=== PATIENT | female | born 1965 | race African-American/Black ===

== ENCOUNTER 2018-10-26 09:37 | Inpatient (IN) | payer MEDICAID ==
[~2018-10-26] VITALS: Ht 165.1 cm; Wt 72.6 kg
[~2018-10-26 09:37] MED LIST: ALBUTEROL SULF8.5 GM INH; AZITHROMYCIN250 MG ORAL; KEPPRA500 M4 ORAL; NORCO 5-325 TA1 EACH ORAL
--- NOTE | 2018-10-26 09:45 | NUR ---
ED Nurse Note: called raidiology for CT of the head for possible stroke
--- NOTE | 2018-10-26 09:49 | NUR ---
ED Nurse Note: followed up CT for code stroke
[2018-10-26 09:50] VITALS: BP 139/93
--- NOTE | 2018-10-26 09:50 | NUR ---
ED Nurse Note: Pt taken to CT via kaya.
--- NOTE | 2018-10-26 09:50 | NUR ---
ED Nurse Note: Pt from home came in due to weakness x 4 days. Pt states that she is "feeling funny". Pt is AAO x4, ambulates with assist with non labored breathing. Speech is garbled but not slurring. VSS.
--- NOTE | 2018-10-26 09:52 | NUR ---
ED Nurse Note: PT. TAKEN DOWN TO CT
--- NOTE | 2018-10-26 10:10 | Diagnostic Imaging Report ---
Indication: Seizure Technique: Contiguous 5 mm thick transaxial imaging of the head obtained in a Siemens Sensation [address] scanner. Soft tissue and bone windows generated. Automatic Exposure Control was utilized. Total Dose length Product (DLP): 1245.[address] Dose Index Volume (CTDIvol): 70.38 mGy Comparison: none Findings: Scattered areas of encephalomalacia are demonstrated within portions of the frontal lobes bilaterally worse on the right, posterior parietal lobes bilaterally. There is no mass effect or edema identified. The basal cisterns appear normal. Ventricles appear normal. There is low attenuation of the periventricular and deep white matter consistent with chronic small vessel disease. Osseous structures are unremarkable. Paranasal sinuses appear clear as visualized. IMPRESSION: No evidence of acute intracranial hemorrhage mass effect or edema Small areas of cortical encephalomalacia noted bilaterally presumably infarcts. Please correlate clinically. Nonspecific white matter low attenuation, which may be due to chronic small vessel disease. The CT scanner at [facility] is accredited by the [employer] and the scans are performed using dose optimization techniques as appropriate to a performed exam including Automatic Exposure control.
--- NOTE | 2018-10-26 10:10 | Diagnostic Imaging Report ---
Indication: Chest pain Comparison: None A single view chest radiograph was obtained. Findings: Cardiac silhouette is prominent. The lungs are clear. Pulmonary vascularity is appropriate. The diaphragmatic contour is smooth and costophrenic angles are sharp. No pleural effusions are identified. The bones are unremarkable. Impression: No acute findings
--- NOTE | 2018-10-26 10:15 | NUR ---
ED Nurse Note: Pt came back from CT. VSS.
[2018-10-26 10:35] LABS: HEMATOCRIT 37.8 % (37.0-47.0); HEMOGLOBIN 12.6 G/DL (12.0-16.0); MEAN CORPUSCULAR VOLUME 94 FL (80-99); RED BLOOD COUNT 4.01 M/UL (4.20-5.40); RED CELL DISTRIBUTION WIDTH 12.1 % (11.6-14.8); WHITE BLOOD COUNT 6.4 K/UL (4.8-10.8)
--- NOTE | 2018-10-26 10:42 | NUR ---
ED Nurse Note: LAB CALLED FOR BLOOD REDRAW.
[2018-10-26 10:48] LABS: INR 0.9 (0.9-1.1)
--- NOTE | 2018-10-26 11:20 | NUR ---
ED Nurse Note: Joleen from lab at the bed side for blood draw.
[2018-10-26 11:39] LABS: PLATELET COUNT 239 K/UL (150-450)
[2018-10-26 11:42] LABS: ANION GAP 9 mmol/L (5-15); BLOOD UREA NITROGEN 14 mg/dL (7-18); CALCIUM 8.6 MG/DL (8.5-10.1); CARBON DIOXIDE 27 MMOL/L (21-32); CHLORIDE 104 MMOL/L (98-107); CREATININE 0.7 MG/DL (0.55-1.30); POTASSIUM 3.9 MMOL/L (3.5-5.1); SODIUM 140 MMOL/L (136-145)
[2018-10-26 11:47] VITALS: BP 123/80
--- NOTE | 2018-10-26 12:00 | NUR ---
ED Nurse Note: Dr Yumiko flores to transfer to pt to telemetry unit without all the results of blood works.
--- NOTE | 2018-10-26 12:03 | NUR ---
ED Nurse Note: Report given to Coy GUNDERSON of telemetry unit.
[2018-10-26 12:08] LABS: ALANINE AMINOTRANSFERASE 15 U/L (12-78); ALBUMIN 3.1 G/DL (3.4-5.0); ALBUMIN/GLOBULIN RATIO 0.8 (1.0-2.7); ALKALINE PHOSPHATASE 129 U/L (46-116); ASPARTATE AMINO TRANSFERASE 10 U/L (15-37); BILIRUBIN,TOTAL 0.3 MG/DL (0.2-1.0); CREATINE KINASE 59 U/L (26-308)
[2018-10-26 12:51] VITALS: BP 140/80
--- NOTE | 2018-10-26 13:01 | NUR ---
NURSE NOTES: Pt awake alert,verbal, oriented x2-3. no distress. no c/o pain. sacral area intact. call light within reach. will monitor.
--- NOTE | 2018-10-26 13:01 | NUR ---
NURSE NOTES: PAGED DR NEWELL RE ADMISSION ORDERS VIA MD OFFICE.
--- NOTE | 2018-10-26 13:28 | Emergency Room Report ---
History of Present Illness General Chief Complaint: Stroke Symptoms Source: Patient Present Illness HPI Patient presents with complaints of'not feeling right' Patient was brought in by family However reports that she was dropped off and there was no other family that presented Patient has history of CVA and seizure disorder is on Keppra Reports that 4 days ago symptoms started including stuttering of her speech Denies any chest pain or shortness of breath denies any obvious focal weakness Denies any recent travel Denies any visual changes, Allergies: Coded Allergies: GUAIFENESIN (Verified Allergy, Unknown, 08/31/15) IBUPROFEN (Verified Allergy, Unknown, 08/31/15) PENICILLINS (Verified Allergy, Unknown, 08/31/15) PHENYTOIN (Verified Allergy, Unknown, 08/31/15) Patient History Past Medical History: see triage record Pertinent Family History: none Now: No Reviewed Nursing Documentation: PMH: Agreed; PSxH: Agreed Nursing Documentation-PMH Past Medical History: No History, Except For Hx Cardiac Problems: Yes Hx Hypertension: Yes Hx Diabetes: Yes Hx Cancer: No Hx Gastrointestinal Problems: No Hx Cerebrovascular Accident: Yes Hx Seizures: Yes Review of Systems All Other Systems: negative except mentioned in HPI Physical Exam Vital Signs Date Time Temp Pulse Resp B/P (MAP) Pulse Ox O2 Delivery O2 Flow Rate FiO2 10/26/18 09:45 97.9 113 20 99 Room Air 10/26/18 09:50 139/93 Sp02 EP Interpretation: reviewed, normal General Appearance: no apparent distress Head: normocephalic, atraumatic Eyes: bilateral eye PERRL, bilateral eye EOMI ENT: normal pharynx, no angioedema Neck: supple Respiratory: lungs clear, no retraction, no accessory muscle use Cardiovascular #1: regular rate, rhythm Gastrointestinal: non tender, soft Musculoskeletal: other - Equal visual supervisor in both upper extremities, moves lower extremities equally sensory intact Neurologic: alert, oriented x3, responsive, other - Speech shows some evidence of word searching and, stuttering affect Skin: normal color, no rash Lymphatic: no adenopathy Medical Decision Making Diagnostic Impression: Primary Impression: Stroke-like episode Additional Impression: CVA (cerebral vascular accident) ER Course Patient has a complex presentation with multiple differentials and consideration Including but not limited to stroke, mass, cardiac, cardiopulmonary pathology Patient's symptoms onset 4 days ago No obvious weakness is seen Patient does not meet criteria for thrombolytic therapy At this time has remained seizure-free however given the unusual presentation Will require further inpatient care and possible MRI as needed Labs Test 10/26/18 10:25 10/26/18 11:23 White Blood Count 6.4 K/UL (4.8-10.8) Red Blood Count 4.01 M/UL (4.20-5.40) Hemoglobin 12.6 G/DL (12.0-16.0) Hematocrit 37.8 % (37.0-47.0) Mean Corpuscular Volume 94 FL (80-99) Mean Corpuscular Hemoglobin 31.5 PG (27.0-31.0) Mean Corpuscular Hemoglobin Concent 33.5 G/DL (32.0-36.0) Red Cell Distribution Width 12.1 % (11.6-14.8) Platelet Count 239 K/UL (150-450) Mean Platelet Volume 7.8 FL (6.5-10.1) Neutrophils (%) (Auto) % (45.0-75.0) Lymphocytes (%) (Auto) % (20.0-45.0) Monocytes (%) (Auto) % (1.0-10.0) Eosinophils (%) (Auto) % (0.0-3.0) Basophils (%) (Auto) % (0.0-2.0) Differential Total Cells Counted 100 Neutrophils % (Manual) 39 % (45-75) Lymphocytes % (Manual) 51 % (20-45) Monocytes % (Manual) 3 % (1-10) Eosinophils % (Manual) 6 % (0-3) Basophils % (Manual) 1 % (0-2) Band Neutrophils 0 % (0-8) Platelet Estimate Adequate Platelet Morphology Normal Red Blood Cell Morphology Normal Prothrombin Time 9.8 SEC (9.30-11.50) Prothromb Time International Ratio 0.9 (0.9-1.1) Activated Partial Thromboplast Time 20 SEC (23-33) Sodium Level 140 MMOL/L (136-145) Potassium Level 3.9 MMOL/L (3.5-5.1) Chloride Level 104 MMOL/L (98-107) Carbon Dioxide Level 27 MMOL/L (21-32) Anion Gap 9 mmol/L (5-15) Blood Urea Nitrogen 14 mg/dL (7-18) Creatinine 0.7 MG/DL (0.55-1.30) Estimat Glomerular Filtration Rate > 60 mL/min (>60) Glucose Level 359 MG/DL (74-106) Calcium Level 8.6 MG/DL (8.5-10.1) Total Bilirubin 0.3 MG/DL (0.2-1.0) Aspartate Amino Transf (AST/SGOT) 10 U/L (15-37) Alanine Aminotransferase (ALT/SGPT) 15 U/L (12-78) Alkaline Phosphatase 129 U/L (46-116) Total Creatine Kinase 59 U/L (26-308) Creatine Kinase MB 1.0 NG/ML (0.0-3.6) Creatine Kinase MB Relative Index 1.6 Troponin I 0.012 ng/mL (0.000-0.056) Total Protein 6.9 G/DL (6.4-8.2) Albumin 3.1 G/DL (3.4-5.0) Globulin 3.8 g/dL Albumin/Globulin Ratio 0.8 (1.0-2.7) Urine Opiates Screen Negative (NEGATIVE) Urine Barbiturates Screen Negative (NEGATIVE) Phencyclidine (PCP) Screen Negative (NEGATIVE) Urine Amphetamines Screen Negative (NEGATIVE) Urine Benzodiazepines Screen Negative (NEGATIVE) Urine Cocaine Screen Negative (NEGATIVE) Urine Marijuana (THC) Screen Positive (NEGATIVE) EKG Diagnostic Results Rate: normal Rhythm: NSR ST Segments: no acute changes Rhythm Strip Diag. Results EP Interpretation: yes Rate: 70 Rhythm: NSR, no PVC's, no ectopy Chest X-Ray Diagnostic Results Chest X-Ray Diagnostic Results : Chest X-Ray Ordered: Yes # of Views/Limited/Complete: 1 View Indication: Chest Pain EP Interpretation: Yes Interpretation: no consolidation, no effusion, no pneumothorax Impression: No acute disease Electronically Signed by: Josefa Calderon DO CT/MRI/US Diagnostic Results CT/MRI/US Diagnostic Results : Impression CT head no acute disease Last Vital Signs Date Time Temp Pulse Resp B/P (MAP) Pulse Ox O2 Delivery O2 Flow Rate FiO2 10/26/18 12:57 Room Air 10/26/18 12:51 98.5 80 18 140/80 (100) 98 Status: improved Disposition: ADMITTED INPATIENT Condition: Serious Referrals: NOT CHOSEN IPA/,REFERRING (PCP) Josefa Calderon DO October 26, 2018 13:27
--- NOTE | 2018-10-26 14:06 | NUR ---
NURSE NOTES: JUST RECEIVED ORDERS NOW, ENTERED AND CARRIED OUT. CALLED KITCHEN FOR TRAY
[2018-10-26] MEDS: HYDROcodone/Acetamin 5/325 tab ORAL PRN ×2 (14:18→21:01)
--- NOTE | 2018-10-26 14:22 | NUR ---
NURSE NOTES: received second call from dr Lino to notify rn that 'the reason i didnt call back right away is because this pt was not endorsed to me so i had to wait for er md to endorse to me"
--- NOTE | 2018-10-26 14:26 | Consultation ---
History of Present Illness General Date patient seen: October 26, 2018 Chief Complaint: Stroke Symptoms Present Illness HPI Kylee Hooks is a 53 year old woman with a history of CVA and seizure disorder controlled on Keppra. She was brought in by her family after she experienced worsening stuttering speech for the previous four days. She also remarks that she is experiencing head pressure/ pain and "doesn' t feel right". Upon exam, she is alert and oriented, sitting at the side of the bed. Allergies: Coded Allergies: GUAIFENESIN (Verified Allergy, Unknown, 08/31/15) IBUPROFEN (Verified Allergy, Unknown, Hives, 10/26/18) TOLERATED ASPIRIN PENICILLINS (Verified Allergy, Unknown, 08/31/15) PHENYTOIN (Verified Allergy, Unknown, 08/31/15) Medication History Scheduled Albuterol Sulfate* (Albuterol Sulfate Mdi*), 2 PUFF INH Q4H Azithromycin* (Zithromax*), 250 MG ORAL DAILY Levetiracetam (Keppra), 500 MG ORAL THREE TIMES A DAY Scheduled PRN Hydrocodone Bit/Acetaminophen 5-325* (Corona 5-325*), 1 TAB ORAL Q6H PRN for For Pain Patient History Limited by: medical condition History Provided By: Patient, Medical Record Healthcare decision maker Resuscitation status Advanced Directive on File Past Medical/Surgical History Past Medical/Surgical History: (1) CVA (cerebral vascular accident) (2) HTN (hypertension) (3) Seizure (4) Hyperglycemia Review of Systems Constitutional: Reports: weakness, other Eye: Reports: blurred vision; Denies: no symptoms, see HPI, eye pain, tearing, double vision, nose pain, nose congestion, acuity changes, discharge, other ENT: Denies: no symptoms, see HPI, ear pain, ear discharge, nose pain, nose congestion, throat pain, throat swelling, mouth pain, hearing loss, nasal discharge, other Respiratory: Denies: no symptoms, see HPI, cough, orthopnea, shortness of breath, stridor, wheezing, GILLIAM, sputum, other Cardiovascular: Denies: no symptoms, see HPI, chest pain, edema, palpitations, syncope, PND, other Gastrointestinal: Denies: no symptoms, see HPI, abdominal pain, constipation, diarrhea, nausea, vomiting, melena, hematemesis, other Genitourinary: Denies: no symptoms, see HPI, discharge, dysuria, frequency, hematuria, pain, retention, incontinence, urgency, vag bleed/dc, other Musculoskeletal: Reports: other; Denies: no symptoms, see HPI, back pain, gout , joint pain, joint swelling, muscle pain, muscle stiffness Skin: Denies: no symptoms, see HPI, rash, change in color, change in hair/nails , dryness, lesions, other Physical Exam Last 24 Hour Vital Signs Date Time Temp Pulse Resp B/P (MAP) Pulse Ox O2 Delivery O2 Flow Rate FiO2 10/26/18 12:57 Room Air 10/26/18 12:51 98.5 80 18 140/80 (100) 98 10/26/18 12:22 78 10/26/18 12:05 98.2 75 18 123/80 97 Room Air 10/26/18 11:47 98.2 75 18 123/80 97 Room Air 10/26/18 09:50 97.9 85 18 139/93 99 Room Air 10/26/18 09:45 97.9 113 20 99 Room Air Laboratory Tests Test 10/26/18 10:25 10/26/18 11:23 White Blood Count 6.4 K/UL (4.8-10.8) Red Blood Count 4.01 M/UL (4.20-5.40) L Hemoglobin 12.6 G/DL (12.0-16.0) Hematocrit 37.8 % (37.0-47.0) Mean Corpuscular Volume 94 FL (80-99) Mean Corpuscular Hemoglobin 31.5 PG (27.0-31.0) H Mean Corpuscular Hemoglobin Concent 33.5 G/DL (32.0-36.0) Red Cell Distribution Width 12.1 % (11.6-14.8) Platelet Count 239 K/UL (150-450) Mean Platelet Volume 7.8 FL (6.5-10.1) Neutrophils (%) (Auto) % (45.0-75.0) Lymphocytes (%) (Auto) % (20.0-45.0) Monocytes (%) (Auto) % (1.0-10.0) Eosinophils (%) (Auto) % (0.0-3.0) Basophils (%) (Auto) % (0.0-2.0) Differential Total Cells Counted 100 Neutrophils % (Manual) 39 % (45-75) L Lymphocytes % (Manual) 51 % (20-45) H Monocytes % (Manual) 3 % (1-10) Eosinophils % (Manual) 6 % (0-3) H Basophils % (Manual) 1 % (0-2) Band Neutrophils 0 % (0-8) Platelet Estimate Adequate Platelet Morphology Normal Red Blood Cell Morphology Normal Prothrombin Time 9.8 SEC (9.30-11.50) Prothromb Time International Ratio 0.9 (0.9-1.1) Activated Partial Thromboplast Time 20 SEC (23-33) L Sodium Level 140 MMOL/L (136-145) Potassium Level 3.9 MMOL/L (3.5-5.1) Chloride Level 104 MMOL/L (98-107) Carbon Dioxide Level 27 MMOL/L (21-32) Anion Gap 9 mmol/L (5-15) Blood Urea Nitrogen 14 mg/dL (7-18) Creatinine 0.7 MG/DL (0.55-1.30) Estimat Glomerular Filtration Rate > 60 mL/min (>60) Glucose Level 359 MG/DL (74-106) H Calcium Level 8.6 MG/DL (8.5-10.1) Total Bilirubin 0.3 MG/DL (0.2-1.0) Aspartate Amino Transf (AST/SGOT) 10 U/L (15-37) L Alanine Aminotransferase (ALT/SGPT) 15 U/L (12-78) Alkaline Phosphatase 129 U/L (46-116) H Total Creatine Kinase 59 U/L (26-308) Creatine Kinase MB 1.0 NG/ML (0.0-3.6) Creatine Kinase MB Relative Index 1.6 Troponin I 0.012 ng/mL (0.000-0.056) Total Protein 6.9 G/DL (6.4-8.2) Albumin 3.1 G/DL (3.4-5.0) L Globulin 3.8 g/dL Albumin/Globulin Ratio 0.8 (1.0-2.7) L Urine Opiates Screen Negative (NEGATIVE) Urine Barbiturates Screen Negative (NEGATIVE) Phencyclidine (PCP) Screen Negative (NEGATIVE) Urine Amphetamines Screen Negative (NEGATIVE) Urine Benzodiazepines Screen Negative (NEGATIVE) Urine Cocaine Screen Negative (NEGATIVE) Urine Marijuana (THC) Screen Positive (NEGATIVE) H Height (Feet): 5 Height (Inches): 5.00 Weight (Pounds): 160 Medications Current Medications Medications (Trade) Dose Ordered Sig/Cecil Route PRN Reason Start Time Stop Time Status Last Admin Dose Admin Acetaminophen (Tylenol) 650 mg Q4H PRN ORAL Mild Pain/Temp > 100.5 10/26/18 14:15 11/25/18 14:14 Acetaminophen/ Hydrocodone Bitart (Corona 5/325) 1 tab Q6H PRN ORAL Moderate Pain (Pain Scale 4-6) 10/26/18 14:15 11/02/18 14:14 10/26/18 14:18 Levetiracetam (Keppra) 500 mg Q8HR ORAL 10/26/18 14:08 11/25/18 14:07 10/26/18 14:18 Assessment/Plan Assessment/Plan: CT Head showed possible chronic bilateral infarcts and encephalomalacia that is likely attributable to history of seizure disorder . MRI w/o contrast ordered to rule out Acute Stroke EEG ordered to establish whether or not any epileptiform activity is seen to explain this episode. Hyperglycemia however appears to be a consideration in patient's current clinical status. A likely possibility is Acute Encephalopathy secondary to this metabolic cause. Continue ASA Check Lipids and start a statin 40mg Atorvastatin at this time HgBA1c pending - maintain normoglycemia with ISS at this time . Maintain SBP< 140 Berta Duran N.P. October 26, 2018 14:26
[2018-10-26 15:37] VITALS: BP 130/80
--- NOTE | 2018-10-26 16:52 | Consultation ---
Consult Note Consult Note asked to eval at the request of Dr Marc HPI Patient presents with complaints of'not feeling right' Patient was brought in by family However reports that she was dropped off and there was no other family that presented Patient has history of CVA and seizure disorder is on Keppra Reports that 4 days ago symptoms started including stuttering of her speech Denies any chest pain or shortness of breath denies any obvious focal weakness Denies any recent travel Denies any visual changes, Allergies: GUAIFENESIN (Verified Allergy, Unknown, 08/31/15) IBUPROFEN (Verified Allergy, Unknown, 08/31/15) PENICILLINS (Verified Allergy, Unknown, 08/31/15) PHENYTOIN (Verified Allergy, Unknown, 08/31/15) Past Medical History: No History, Except For Hx Cardiac Problems: Yes Hx Hypertension: Yes Hx Diabetes: Yes Hx Cerebrovascular Accident: Yes Hx Seizures: Yes interviewed examined data reviewed Assessment/Plan HTN DM OOC h/o Psych Urine + for MJ medium cho- easy chew- adentulous lopressor, ASA , continue Keppra per orders Adam Zepeda MD October 26, 2018 16:52
[2018-10-26] MEDS ORDERED: HydrALAZINE 25mg tab ORAL PRN (17:00)
[2018-10-26] MEDS: Docusate 100mg cap ORAL SCH (17:19)
--- NOTE | 2018-10-26 19:09 | NUR ---
NURSE NOTES: Received report from Otilia Gtz RN. Patient is asleep in bed, arousable to name, A/O x4. Sinus rhythm on atomic welder. No s/s of acute distress noted at this time. Saturating well on room air. Left forearm 20g IV saline lock, intact and patent. Bed locked in lowest position with padded side rails up x3. Call light left within reach. Will continue to monitor.
--- NOTE | 2018-10-26 19:09 | NUR ---
HAND-OFF: Report given to MAICOL GUNDERSON. PAGED DR MAYORGA FOR NEURO CONSULT
[2018-10-26 20:00] VITALS: BP 152/79
[2018-10-26] MEDS: Metoprolol Tartrate 12.5mg TAB ORAL SCH (21:00)
--- NOTE | 2018-10-26 22:30 | NUR ---
NURSE NOTES: EEG completed at bedside. EEG is normal. Attempted to call MRI for Brain MRI, although routine not stat. No answer. Will try again later.
--- NOTE | 2018-10-26 23:11 | NUR ---
NURSE NOTES: Received new orders from Dr. Zoie MD regarding blood glucose and Novolog sliding scale. Noted and carried out.
[2018-10-27] VITALS: BP 139/92
--- NOTE | 2018-10-27 01:00 | NUR ---
NURSE NOTES: Tried to call for MRI, but no answer once again.
--- NOTE | 2018-10-27 01:45 | NUR ---
NURSE NOTES: Received new order from Sergei Duran neuro BUS GIRL. Patient is to remain NPO until ST bedside swallow eval. Noted and carried out.
[2018-10-27] MEDS: HYDROcodone/Acetamin 5/325 tab ORAL PRN ×3 (03:07→20:40)
[2018-10-27 04:00] VITALS: BP 133/69
[2018-10-27] MEDS: NovoLOG Insulin Flexpen SUBQ SCH ×4 (06:12→21:08)
--- NOTE | 2018-10-27 06:29 | NUR ---
Unable to obtain weekly weight d/t patient's unsteady gait and patient stating "I don't feel comfortable standing long." Addendum: 10/27/18 at 0630 by JUAN FLORES RN Amended: Links added.
[2018-10-27] MEDS ORDERED: Nateglinide 60mg tab ORAL SCH (06:30)
--- NOTE | 2018-10-27 07:10 | NUR ---
HAND-OFF: Report given to Lupe Martínez RN.
--- NOTE | 2018-10-27 07:15 | NUR ---
NURSE NOTES: I received the patient awake and resting in bed. Patient did not display any signs of distress or SOB. Bed in the lowest position and call light within reach. I will continue to monitor the patient and implement care.
[2018-10-27 07:33] LABS: BASOPHILS % (AUTO) 0.9 % (0.0-2.0); EOSINOPHILS % (AUTO) 4.3 % (0.0-3.0); HEMATOCRIT 38.2 % (37.0-47.0); HEMOGLOBIN 12.7 G/DL (12.0-16.0); LYMPHOCYTES % (AUTO) 53.5 % (20.0-45.0); MEAN CORPUSCULAR VOLUME 94 FL (80-99); MONOCYTES % (AUTO) 5.8 % (1.0-10.0); NEUTROPHILS % (AUTO) 35.5 % (45.0-75.0); PLATELET COUNT 283 K/UL (150-450); RED BLOOD COUNT 4.06 M/UL (4.20-5.40); RED CELL DISTRIBUTION WIDTH 12.3 % (11.6-14.8); WHITE BLOOD COUNT 7.1 K/UL (4.8-10.8)
[2018-10-27 08:00] VITALS: BP 138/79
[2018-10-27 08:09] LABS: ALANINE AMINOTRANSFERASE 17 U/L (12-78); ALBUMIN 3.3 G/DL (3.4-5.0); ALBUMIN/GLOBULIN RATIO 0.9 (1.0-2.7); ALKALINE PHOSPHATASE 127 U/L (46-116); ANION GAP 6 mmol/L (5-15); ASPARTATE AMINO TRANSFERASE < 5 U/L (15-37); BILIRUBIN,TOTAL 0.4 MG/DL (0.2-1.0); BLOOD UREA NITROGEN 14 mg/dL (7-18); CALCIUM 9.2 MG/DL (8.5-10.1); CARBON DIOXIDE 32 MMOL/L (21-32); CHLORIDE 103 MMOL/L (98-107); CHOLESTEROL 171 MG/DL (< 200); CREATININE 0.6 MG/DL (0.55-1.30); HDL CHOLESTEROL 54 MG/DL (40-60); POTASSIUM 4.1 MMOL/L (3.5-5.1); SODIUM 141 MMOL/L (136-145); TRIGLYCERIDES 82 MG/DL (30-150)
[2018-10-27 08:12] LABS: GAMMA GLUTAMYL TRANSPEPTIDASE 35 U/L (5-85); PHOSPHORUS 3.9 MG/DL (2.5-4.9)
[2018-10-27] MEDS ORDERED: Levemir Flexpen SUBQ SCH (09:00)
[2018-10-27] MEDS: Aspirin Baby 81mg ORAL SCH (09:04)
[2018-10-27] MEDS: Metoprolol Tartrate 12.5mg TAB ORAL SCH ×2 (09:04→20:39)
[2018-10-27] MEDS: Docusate 100mg cap ORAL SCH ×3 (09:04→17:38)
--- NOTE | 2018-10-27 10:14 | NUR ---
CASE MANAGEMENT:REVIEW 53 YR OLD FEMALE PRESENTED TO ER CC: FEELING FUNNY. SLURRED SPEECH SI: ACUTE CVA 97.9 113 20 144/94 99% ON RA GLUCOSE+359 URINE(+) THC IS: 500CC NS BOLUS CT HEAD CHEST XRAY NPO : TO TELEMETRY UNIT IS: MRI BRAIN EEG SWALLOW EVAL INTERQUAL CRITERIA MET
--- NOTE | 2018-10-27 10:14 | Nephrology Progress Note ---
Assessment/Plan Problem List: (1) HTN (hypertension) (2) Hyperglycemia Assessment: DMII (3) Seizure Assessment HTN DM OOC h/o Psych Urine + for MJ Plan medium cho- easy chew- adentulous lopressor, ASA , continue Keppra starlix for BS per orders mag IV ? med- surg Subjective ROS Limited/Unobtainable: No Constitutional: Reports: other - anxious to go home Objective Objective Last 24 Hour Vital Signs Date Time Temp Pulse Resp B/P (MAP) Pulse Ox O2 Delivery O2 Flow Rate FiO2 10/27/18 09:04 69 138/79 10/27/18 09:00 Room Air 10/27/18 08:00 97.7 69 20 138/79 (98) 93 10/27/18 07:22 64 10/27/18 04:00 98.3 66 20 133/69 (90) 94 10/27/18 03:04 97 10/27/18 00:48 71 10/27/18 00:00 97.0 77 18 139/92 (108) 95 10/26/18 21:31 97.9 10/26/18 21:00 Room Air 10/26/18 21:00 81 152/79 10/26/18 20:00 97.9 81 20 152/79 (103) 97 10/26/18 19:04 88 10/26/18 15:37 98.5 70 18 130/80 (97) 98 10/26/18 12:57 Room Air 10/26/18 12:51 98.5 80 18 140/80 (100) 98 10/26/18 12:22 78 10/26/18 12:05 98.2 75 18 123/80 97 Room Air 10/26/18 11:47 98.2 75 18 123/80 97 Room Air Intake and Output 10/26/18 10/27/18 18:59 06:59 Intake Total 1100 ml 200 ml Balance 1100 ml 200 ml Intake Oral 600 ml 200 ml IV Total 500 ml # Voids 4 4 Current Medications Medications (Trade) Dose Ordered Sig/Cecil Route PRN Reason Start Time Stop Time Status Last Admin Dose Admin Acetaminophen (Tylenol) 650 mg Q4H PRN ORAL Mild Pain/Temp > 100.5 10/26/18 14:15 11/25/18 14:14 Acetaminophen/ Hydrocodone Bitart ([place] 5/325) 1 tab Q6H PRN ORAL Moderate Pain (Pain Scale 4-6) 10/26/18 14:15 11/02/18 14:14 10/27/18 03:07 Aspirin (ASA) 81 mg DAILY ORAL 10/27/18 09:00 11/26/18 08:59 10/27/18 09:04 Dextrose (Dextrose 50%) 25 ml Q30M PRN IV Hypoglycemia 10/27/18 06:45 11/26/18 06:44 Dextrose (Dextrose 50%) 50 ml Q30M PRN IV Hypoglycemia 10/27/18 06:45 11/26/18 06:44 Docusate Sodium (Colace) 100 mg THREE TIMES A DAY ORAL 10/26/18 18:00 11/25/18 17:59 10/27/18 09:04 Hydralazine HCl (Apresoline) 25 mg Q4HR PRN ORAL bp over 160 syst 10/26/18 17:00 11/25/18 16:59 Insulin Aspart (NovoLOG) BEFORE MEALS AND HS SUBQ 10/27/18 06:30 11/26/18 06:29 10/27/18 06:12 Insulin Detemir (Levemir) 8 units DAILY SUBQ 10/27/18 09:00 11/26/18 08:59 10/27/18 09:34 Levetiracetam (Keppra) 500 mg Q8HR ORAL 10/26/18 14:08 11/25/18 14:07 10/27/18 06:13 Magnesium Sulfate 100 ml @ 100 mls/hr Q1H IVPB 10/27/18 09:00 10/27/18 12:59 10/27/18 09:04 Metoprolol Tartrate (Lopressor) 12.5 mg Q12HR ORAL 10/26/18 21:00 11/25/18 20:59 10/27/18 09:04 Nateglinide (Starlix) 60 mg TIAC ORAL 10/27/18 06:30 11/26/18 06:29 10/27/18 06:12 Pantoprazole (Protonix) 40 mg EVERY 12 HOURS ORAL 10/26/18 21:00 11/25/18 20:59 10/27/18 09:04 Laboratory Tests 10/26/18 10:25: White Blood Count 6.4, Red Blood Count 4.01L, Hemoglobin 12.6, Hematocrit 37.8, Mean Corpuscular Volume 94, Mean Corpuscular Hemoglobin 31.5H, Mean Corpuscular Hemoglobin Concent 33.5, Red Cell Distribution Width 12.1, Platelet Count 239, Mean Platelet Volume 7.8, Neutrophils (%) (Auto) , Lymphocytes (%) (Auto) , Monocytes (%) (Auto) , Eosinophils (%) (Auto) , Basophils (%) (Auto) , Differential Total Cells Counted 100, Neutrophils % (Manual) 39L, Lymphocytes % (Manual) 51H, Monocytes % (Manual) 3, Eosinophils % (Manual) 6H, Basophils % ( Manual) 1, Band Neutrophils 0, Platelet Estimate Adequate, Platelet Morphology Normal, Red Blood Cell Morphology Normal, Prothrombin Time 9.8, Prothromb Time International Ratio 0.9, Activated Partial Thromboplast Time 20L 10/26/18 11:23: Sodium Level 140, Potassium Level 3.9, Chloride Level 104, Carbon Dioxide Level 27, Anion Gap 9, Blood Urea Nitrogen 14, Creatinine 0.7, Estimat Glomerular Filtration Rate > 60, Glucose Level 359H, Calcium Level 8.6, Total Bilirubin 0.3 , Aspartate Amino Transf (AST/SGOT) 10L, Alanine Aminotransferase (ALT/SGPT) 15 , Alkaline Phosphatase 129H, Total Creatine Kinase 59, Creatine Kinase MB 1.0, Creatine Kinase MB Relative Index 1.6, Troponin I 0.012, Total Protein 6.9, Albumin 3.1L, Globulin 3.8, Albumin/Globulin Ratio 0.8L, Urine Opiates Screen Negative, Urine Barbiturates Screen Negative, Phencyclidine (PCP) Screen Negative, Urine Amphetamines Screen Negative, Urine Benzodiazepines Screen Negative, Urine Cocaine Screen Negative, Urine Marijuana (THC) Screen PositiveH 10/27/18 07:20: White Blood Count 7.1, Red Blood Count 4.06L, Hemoglobin 12.7, Hematocrit 38.2, Mean Corpuscular Volume 94, Mean Corpuscular Hemoglobin 31.3H, Mean Corpuscular Hemoglobin Concent 33.2, Red Cell Distribution Width 12.3, Platelet Count 283, Mean Platelet Volume 7.1, Neutrophils (%) (Auto) 35.5L, Lymphocytes (%) (Auto) 53.5H, Monocytes (%) (Auto) 5.8, Eosinophils (%) (Auto) 4.3H, Basophils (%) ( Auto) 0.9, Sodium Level 141, Potassium Level 4.1, Chloride Level 103, Carbon Dioxide Level 32, Anion Gap 6, Blood Urea Nitrogen 14, Creatinine 0.6, Estimat Glomerular Filtration Rate > 60, Glucose Level 180#H, Calcium Level 9.2, Total Bilirubin 0.4, Aspartate Amino Transf (AST/SGOT) < 5L, Alanine Aminotransferase (ALT/SGPT) 17, Alkaline Phosphatase 127H, Total Protein 7.1, Albumin 3.3L, Globulin 3.8, Albumin/Globulin Ratio 0.9L, Hemoglobin A1c 9.5H, Uric Acid 3.5, Phosphorus Level 3.9, Magnesium Level 1.4L, Gamma Glutamyl Transpeptidase 35, C- Reactive Protein, Quantitative < 0.4, Pro-B-Type Natriuretic Peptide 21, Triglycerides Level 82, Cholesterol Level 171, LDL Cholesterol 103H, HDL Cholesterol 54, Cholesterol/HDL Ratio 3.2L, Vitamin B12 Level 542, Folate 7.3L, Thyroid Stimulating Hormone (TSH) 0.713 Height (Feet): 5 Height (Inches): 5.00 Weight (Pounds): 160 Cardiovascular: normal rate Respiratory/Chest: lungs clear Abdomen: soft Neurologic: other - moves all exts Adam Zepeda MD October 27, 2018 10:13
--- NOTE | 2018-10-27 10:32 | Neurology Progress Note ---
Interim History Interim History ROS Limited/Unobtainable: No Complaints: Stuttering speech, left weakness Events: No new events - MRI negative Objective Physical Exam Last Vital Signs Date Time Temp Pulse Resp B/P (MAP) Pulse Ox O2 Delivery O2 Flow Rate FiO2 10/27/18 09:04 69 138/79 10/27/18 09:00 Room Air 10/27/18 08:00 97.7 20 93 Laboratory Tests Test 10/26/18 11:23 10/27/18 07:20 Sodium Level 140 MMOL/L (136-145) 141 MMOL/L (136-145) Potassium Level 3.9 MMOL/L (3.5-5.1) 4.1 MMOL/L (3.5-5.1) Chloride Level 104 MMOL/L (98-107) 103 MMOL/L (98-107) Carbon Dioxide Level 27 MMOL/L (21-32) 32 MMOL/L (21-32) Anion Gap 9 mmol/L (5-15) 6 mmol/L (5-15) Blood Urea Nitrogen 14 mg/dL (7-18) 14 mg/dL (7-18) Creatinine 0.7 MG/DL (0.55-1.30) 0.6 MG/DL (0.55-1.30) Estimat Glomerular Filtration Rate > 60 mL/min (>60) > 60 mL/min (>60) Glucose Level 359 MG/DL (74-106) H 180 MG/DL (74-106) #H Calcium Level 8.6 MG/DL (8.5-10.1) 9.2 MG/DL (8.5-10.1) Total Bilirubin 0.3 MG/DL (0.2-1.0) 0.4 MG/DL (0.2-1.0) Aspartate Amino Transf (AST/SGOT) 10 U/L (15-37) L < 5 U/L (15-37) L Alanine Aminotransferase (ALT/SGPT) 15 U/L (12-78) 17 U/L (12-78) Alkaline Phosphatase 129 U/L (46-116) H 127 U/L (46-116) H Total Creatine Kinase 59 U/L (26-308) Creatine Kinase MB 1.0 NG/ML (0.0-3.6) Creatine Kinase MB Relative Index 1.6 Troponin I 0.012 ng/mL (0.000-0.056) Total Protein 6.9 G/DL (6.4-8.2) 7.1 G/DL (6.4-8.2) Albumin 3.1 G/DL (3.4-5.0) L 3.3 G/DL (3.4-5.0) L Globulin 3.8 g/dL 3.8 g/dL Albumin/Globulin Ratio 0.8 (1.0-2.7) L 0.9 (1.0-2.7) L Urine Opiates Screen Negative (NEGATIVE) Urine Barbiturates Screen Negative (NEGATIVE) Phencyclidine (PCP) Screen Negative (NEGATIVE) Urine Amphetamines Screen Negative (NEGATIVE) Urine Benzodiazepines Screen Negative (NEGATIVE) Urine Cocaine Screen Negative (NEGATIVE) Urine Marijuana (THC) Screen Positive (NEGATIVE) H White Blood Count 7.1 K/UL (4.8-10.8) Red Blood Count 4.06 M/UL (4.20-5.40) L Hemoglobin 12.7 G/DL (12.0-16.0) Hematocrit 38.2 % (37.0-47.0) Mean Corpuscular Volume 94 FL (80-99) Mean Corpuscular Hemoglobin 31.3 PG (27.0-31.0) H Mean Corpuscular Hemoglobin Concent 33.2 G/DL (32.0-36.0) Red Cell Distribution Width 12.3 % (11.6-14.8) Platelet Count 283 K/UL (150-450) Mean Platelet Volume 7.1 FL (6.5-10.1) Neutrophils (%) (Auto) 35.5 % (45.0-75.0) L Lymphocytes (%) (Auto) 53.5 % (20.0-45.0) H Monocytes (%) (Auto) 5.8 % (1.0-10.0) Eosinophils (%) (Auto) 4.3 % (0.0-3.0) H Basophils (%) (Auto) 0.9 % (0.0-2.0) Hemoglobin A1c 9.5 % (4.3-6.0) H Uric Acid 3.5 MG/DL (2.6-7.2) Phosphorus Level 3.9 MG/DL (2.5-4.9) Magnesium Level 1.4 MG/DL (1.8-2.4) L Gamma Glutamyl Transpeptidase 35 U/L (5-85) C-Reactive Protein, Quantitative < 0.4 mg/dL (0.00-0.90) Pro-B-Type Natriuretic Peptide 21 pg/mL (0-125) Triglycerides Level 82 MG/DL (30-150) Cholesterol Level 171 MG/DL (< 200) LDL Cholesterol 103 mg/dL (<100) H HDL Cholesterol 54 MG/DL (40-60) Cholesterol/HDL Ratio 3.2 (3.3-4.4) L Vitamin B12 Level 542 PG/ML (193-986) Folate 7.3 NG/ML (8.6-58.9) L Thyroid Stimulating Hormone (TSH) 0.713 uiU/mL (0.358-3.740) Neurologic Exam Mental Status: awake, alert, oriented x4, normal cognition, good mathematical skills, normal recent memory, normal remote memory, preserved visuospatial function Speech: other Language: other - Dysarthric with left facial weakness, poor tongue protrusion and stuttering speech Cranial Nerves III, IV, : PERRLA Cranial Nerve V: temporales function normal Cranial Nerve VIII: normal hearing Cranial Nerve IX: normal palate elevation Cranial Nerve XI: SCM symmetric Sensory: normal pinprick, normal light touch Impression/Recommendations Problems: (1) Bronchitis (2) Chronic back pain (3) Stroke-like episode (4) HTN (hypertension) (5) Hyperglycemia (6) Seizure (7) CVA (cerebral vascular accident) Status: stable Diagnostic Impression MRI was negative for any acute infarct and again noted possible bilateral infarcts or encephalomalacia. Consider EEG while inpatient to rule out any aberrant seizure activity. Recommendations Normalize/ regulate BLOOD SUGAR - with ISS Start Atorvastatin 40mg Continue ASA Neuro OBs Q 4 Replete/ Correct Lytes : Magnesium/ Calcium Na 135-145 ST Barium swallow recommended Berta Duran N.P. October 27, 2018 10:32
--- NOTE | 2018-10-27 10:47 | NUR ---
MRI BRAIN W/O COMPLETED.
--- NOTE | 2018-10-27 10:56 | NUR ---
ST NOTE: BEDSIDE SWALLOW EVAL RECEIVED BEDSIDE SWALLOW EVAL ORDER CHART REVIEWED PRIOR EVALUATION. REFERRED BY [employer] OFFICER, APRIL; AND PRIMARY PHYSICIAN IS DR. NEWELL. PT IS A 53-YEAR-OLD FEMALE WHO WAS ADMITTED FOR ACUTE CEREBROVASCULAR ACCIDENT. PER PT, PT LIVES AT HOME WITH HER NIECE. PER ER REPORT, PT HAD STUTTERING AND SLURRED SPEECH 4 DAYS AGO PRIOR THE ADMISSION. PT HAS HISTORY OF HTN, SEIZURE DISORDER, PT IS ON KEPPRA AND DM. PER HEAD CT: SMALL AREAS OF CORTICAL ENCEPHALOMALACIA NOTED BILATERALLY PRESUMABLY INFARCTS. PENDING MRI RESULT. CURRENT STATUS: PT SEEN AT BEDSIDE IN AM. PT IS ABLE TO EXPRESS WANTS AND NEEDS VERBALLY. PT FOLLOWS SIMPLE DIRECTIONS, SPEECH IS INTELLIGIBLE AND VOICE IS CLEAR. PT IS ABLE TO IDENTIFY OBJECTS 3/3. PER PT, PT REPORTED THAT FEELING WEAKNESS IN LOWER EXTREMITIES. PT EXPRESSED THE WANTS TO EAT/DRINK BY MOUTH. DENIED ANY SWALLOWING/SPEECH/LANGUAGE/COGNITION PROBLEM. ORAL MOTOR EXAMINATION: MILD TO MODERATE RIGHT-SIDED FACIAL WEAKNESS(R-SIDED FACIAL ASYMMETRY) AND MILD R-SIDED LABIAL WEAKNESS. GOOD LINGUAL MOVEMENT AND STRENGTH. NO TREMOR OR ORAL APRAXIA WAS NOTED. GIVEN PO TRIALS: THIN(3-OZ, USING CARMINE PROTOCOL), NECTAR THICK(CUP), PUREE(TSP) AND MASTICATED SOLID(CRACKER) INITIAL IMPRESSION: SLOW MASTICATION SECONDARY TO PT IS EDENTULOUS, HOWEVER, IT SEEMS FUNCTIONAL. GOOD ORAL TRANSIT TIME, LARYNGEAL ELEVATION SEEMS ADEQUATE, NO OVERT S/S OF ASPIRATION. HAS SILENT ASPIRATION RISK DUE TO PT HAS PROBABLE ACUTE CVA. RECOMMENDATIONS: PER PT, EXPRESSED WANTS AND NEEDS TO EAT/DRINK BY MOUTH; AND DOESN'T WANT ANY CHOPPED FOOD OR THICKENED LIQUIDS. 1. FOR QUALITY OF LIFE, SLOWLY INITIATE SOFT, EASY CHEW WITH THIN LIQUIDS. 2. ASPIRATION PRECAUTIONS 3. MODIFIED BARIUM SWALLOW TO RULE OUT ANY SILENT ASPIRATION AND TO DETERMINE ETIOLOGY AND TREATMENT PLAN. D/W PT, RN, MONIQUE.
--- NOTE | 2018-10-27 11:30 | NUR ---
NURSE NOTES: Patient lost IV access. New IV access was attempted, but the patient refused. She said she is a hard stick. Doctor made aware.
[2018-10-27 12:00] VITALS: BP 160/81
--- NOTE | 2018-10-27 12:47 | Diagnostic Imaging Report ---
Indication: Stuttering speech, abnormal speech, altered mental status, headache Technique: MRI the brain performed utilizing T1 sagittal, T2 axial, T1 FLAIR axial, T2 FLAIR axial, T2*GRE and diffusion axial images without gadolinium. Comparison: Noncontrast CT head 10/26/2018 Findings: No diffusion abnormalities are seen on diffusion weighted imaging to suggest acute infarct. No focal signal dropout on GRE noted to suggest acute intracranial hemorrhage. Small areas of encephalomalacia in the bilateral frontal and parietal lobes most likely representing areas of remote ischemia/chronic infarcts. The sulci, ventricles and cisterns are mildly prominent consistent with mild atrophy. Very mild periventricular white matter T2 hyperintensity is seen without mass effect, most commonly related to chronic small vessel disease. There is no shift of midline structures. No significant extra-axial collections of fluid or blood are demonstrated. Expected signal flow voids are seen of the vessels of the skull base. Mastoid air cells are clear. Some mucosal thickening noted in the right maxillary sinus. No focal bony calvarium or soft tissue lesions are seen. IMPRESSION: No evidence of acute infarct. No acute intracranial hemorrhage, mass effect or midline shift. Small areas of encephalomalacia in the bilateral frontal and parietal lobes likely related to areas of chronic infarct. Correlate clinically. Additional findings as above.
--- NOTE | 2018-10-27 14:44 | Cardiology Report ---
APPROVED REPORT EKG Measurement Heart [id number] Normal sinus rhythm Normal ECG
[2018-10-27] MEDS: levETIRAcetam 500mg/NS100ml 100 ML IVPB SCH ×2 (15:32→21:24)
[2018-10-27 16:00] VITALS: BP 181/94
--- NOTE | 2018-10-27 16:15 | Consultation ---
DATE OF CONSULTATION: 10/27/2018 ENDOCRINOLOGY CONSULTATION: CONSULTING PHYSICIAN: Tom Banda M.D. REFERRING PHYSICIAN: Josefa Lino M.D. REASON FOR CONSULTATION: Diabetes management. HISTORY OF PRESENT ILLNESS: The patient is a 53-year-old female with history of diabetes, CVA, and seizure disorder, on Keppra presented to the hospital with seizure and stuttering of her speech. Glucose is elevated. Therefore, Endocrinology was consulted in order to assist in the management of diabetes. PAST MEDICAL HISTORY: 1. CVA. 2. Hypertension. 3. Diabetes. 4. Seizure disorder. 5. Cardiovascular problems. REVIEW OF SYSTEMS: As per HPI. FAMILY HISTORY: Noncontributory. SOCIAL HISTORY: No smoking, alcohol, or drug use. ALLERGIES: 1. Guaifenesin. 2. Ibuprofen. 3. Penicillin. 4. Phenytoin. PHYSICAL EXAMINATION: VITAL SIGNS: Blood pressure is 139/93, pulse 113, temperature 97.9, respiratory rate of 20. HEENT: Pupils equal and react to light. Sclerae anicteric. NECK: No JVD. HEART: Regular. LUNGS: Clear. ABDOMEN: Positive bowel sounds. Soft. EXTREMITIES: No clubbing or cyanosis. Positive for trace edema. LABORATORY VALUES: WBC 6, hemoglobin 12, hematocrit 37.8, platelets of 239. Sodium 140, potassium 3.9, chloride 104, bicarb 27, BUN 14, creatinine 0.7, glucose of 359. DIAGNOSES: 1. Seizure disorder. 2. History of CVA. 3. Diabetes, out of control. PLAN: 1. Add Levemir 8 units daily. 2. Continue NovoLog sliding scale before meals and at bedtime. 3. Starlix 60 mg before each meal. 4. Further adjustment according to blood glucose value. I will follow the patient closely during hospital stay. Thank you, Dr. Lino, for the courtesy of this consultation. Tom Banda M.D. DR: GALO JOB#: [id number] CC:
--- NOTE | 2018-10-27 19:21 | NUR ---
HAND-OFF: Report given to Lupe Tipton RN.
--- NOTE | 2018-10-27 19:30 | NUR ---
NURSE NOTES: Received patient from Aniya GUNDERSON. Patient in bed, awake, alert and oriented x3. IV on left hand, 24 gauge, patent, intact. Last bag of Magnesium infusing. Bed in low position, bed locked, alarm on, call light within reach.
[2018-10-27 20:00] VITALS: BP 132/77
--- NOTE | 2018-10-27 20:10 | NUR ---
NURSE NOTES: Called Dr. Lino regarding patient's request for Benadryl PRN. Awaiting callback.
--- NOTE | 2018-10-27 20:12 | NUR ---
NURSE NOTES: Received new order from Dr. Lino for Benadryl 25 mg PO q4hr PRN. Noted and carried out.
[2018-10-28] VITALS: BP 121/69
--- NOTE | 2018-10-28 02:30 | Electroencephalogram ---
DATE OF PROCEDURE: 10/26/2018 REQUESTING PHYSICIAN: Mauricio Richards M.D. READING PHYSICIAN: Blake Godfrey M.D. PROCEDURE PERFORMED: Electroencephalogram. HISTORY: This EEG was performed on a 53-year-old lady with a history of multiple medical problems including cerebrovascular disease and questionable seizures. The purpose of this EEG was to evaluate the patient for the degree and type of cerebral dysfunction and to exclude ongoing ictal or interictal phenomena. TECHNICAL NOTE: This EEG was performed on a [employer] with electrodes placed on the scalp according to the International 10-20 system. [id number] and otbyx-hz-mce montages were used. The EEG was technically satisfactory and was performed in the awake, drowsy, and sleep states. OBSERVATIONS: In the best awake state, the background activity consisted of 10-10.5 Hz, posteriorly predominant, well-developed, alpha waveforms, which attenuated on eye opening. Drowsiness was characterized by dissolution of the alpha rhythm and the appearance of slow frequencies in the 5-6 Hz theta range. During drowsiness, bilateral frontal polymorphic delta activity was noted. Stage II sleep was characterized by further slowing of the background in the delta and theta range, the presence of vertex waves, and 14 Hz sleep spindles. No epileptiform discharges were seen. IMPRESSION: This is an abnormal EEG characterized by bilateral frontal polymorphic delta activity seen during drowsiness. COMMENT: This study is consistent with bilateral frontal focal dysfunction. Clinical correlation is recommended. Blake Godfrey M.D., M.S.P.H. DR: BROCK JOB#: [id number] MTDD
[2018-10-28 04:00] VITALS: BP 137/75
[2018-10-28] MEDS: NovoLOG Insulin Flexpen SUBQ SCH ×4 (05:53→20:42)
[2018-10-28] MEDS: HYDROcodone/Acetamin 5/325 tab ORAL PRN ×2 (05:57→15:20)
--- NOTE | 2018-10-28 06:23 | General Progress Note ---
Assessment/Plan Problem List: (1) Diabetes mellitus out of control ICD Codes: E11.65 - Type 2 diabetes mellitus with hyperglycemia SNOMED: 61846156, 776820984 (2) Seizure ICD Codes: R56.9 - Unspecified convulsions SNOMED: 18912460 (3) Hyperglycemia ICD Codes: R73.9 - Hyperglycemia, unspecified SNOMED: 96513239 (4) HTN (hypertension) ICD Codes: I10 - Essential (primary) hypertension SNOMED: 99881449 (5) Stroke-like episode ICD Codes: I63.9 - Cerebral infarction, unspecified SNOMED: 757802336 Assessment/Plan: increase Levemir to 16 units qhs continue Starlix 120 mg ac tid continue NISS ac / hs Subjective Allergies: Coded Allergies: GUAIFENESIN (Verified Allergy, Unknown, 08/31/15) IBUPROFEN (Verified Allergy, Unknown, Hives, 10/26/18) TOLERATED ASPIRIN PENICILLINS (Verified Allergy, Unknown, 08/31/15) PHENYTOIN (Verified Allergy, Unknown, 08/31/15) All Systems: reviewed and negative except above Subjective events noted glucose values elevated Starlix 60 was increased to 120 mg ac tid Item Value Date Time Bedside Blood Glucose 241 mg/dl H 10/28/18 0553 Bedside Blood Glucose 322 mg/dl H 10/27/18 2108 Bedside Blood Glucose 253 mg/dl H 10/27/18 1739 Bedside Blood Glucose 281 mg/dl H 10/27/18 1203 Bedside Blood Glucose 203 mg/dl H 10/27/18 0934 Bedside Blood Glucose 224 mg/dl H 10/27/18 0630 Objective Last 24 Hour Vital Signs Date Time Temp Pulse Resp B/P (MAP) Pulse Ox O2 Delivery O2 Flow Rate FiO2 10/28/18 04:00 98.8 72 18 137/75 (95) 96 10/28/18 03:59 69 10/28/18 00:00 66 10/28/18 00:00 97.3 73 18 121/69 (86) 97 10/27/18 21:10 96.8 10/27/18 21:00 Room Air 10/27/18 20:39 75 132/77 10/27/18 20:00 98.3 75 18 132/77 (95) 96 10/27/18 20:00 80 5/8/19 17:38 181/94 10/27/18 16:05 78 10/27/18 16:00 96.8 68 23 181/94 (123) 99 10/27/18 12:00 97.8 68 24 160/81 (107) 95 10/27/18 11:57 74 10/27/18 09:04 69 138/79 10/27/18 09:00 Room Air 10/27/18 08:00 97.7 69 20 138/79 (98) 93 10/27/18 07:22 64 Intake and Output 10/27/18 10/28/18 19:00 07:00 Intake Total 200 ml Balance 200 ml IV Total 200 ml Laboratory Tests 10/27/18 07:20: White Blood Count 7.1, Red Blood Count 4.06L, Hemoglobin 12.7, Hematocrit 38.2, Mean Corpuscular Volume 94, Mean Corpuscular Hemoglobin 31.3H, Mean Corpuscular Hemoglobin Concent 33.2, Red Cell Distribution Width 12.3, Platelet Count 283, Mean Platelet Volume 7.1, Neutrophils (%) (Auto) 35.5L, Lymphocytes (%) (Auto) 53.5H, Monocytes (%) (Auto) 5.8, Eosinophils (%) (Auto) 4.3H, Basophils (%) ( Auto) 0.9, Sodium Level 141, Potassium Level 4.1, Chloride Level 103, Carbon Dioxide Level 32, Anion Gap 6, Blood Urea Nitrogen 14, Creatinine 0.6, Estimat Glomerular Filtration Rate > 60, Glucose Level 180#H, Hemoglobin A1c 9.5H, Uric Acid 3.5, Calcium Level 9.2, Phosphorus Level 3.9, Magnesium Level 1.4L, Total Bilirubin 0.4, Gamma Glutamyl Transpeptidase 35, Aspartate Amino Transf (AST/ SGOT) < 5L, Alanine Aminotransferase (ALT/SGPT) 17, Alkaline Phosphatase 127H, C -Reactive Protein, Quantitative < 0.4, Pro-B-Type Natriuretic Peptide 21, Total Protein 7.1, Albumin 3.3L, Globulin 3.8, Albumin/Globulin Ratio 0.9L, Triglycerides Level 82, Cholesterol Level 171, LDL Cholesterol 103H, HDL Cholesterol 54, Cholesterol/HDL Ratio 3.2L, Vitamin B12 Level 542, Folate 7.3L, Thyroid Stimulating Hormone (TSH) 0.713 Height (Feet): 5 Height (Inches): 5.00 Weight (Pounds): 160 General Appearance: no apparent distress Neck: normal alignment Cardiovascular: normal rate Respiratory/Chest: decreased breath sounds Abdomen: normal bowel sounds Pelvis: normal external exam Objective Current Medications Medications (Trade) Dose Ordered Sig/Cecil Route PRN Reason Start Time Stop Time Status Last Admin Dose Admin Acetaminophen (Tylenol) 650 mg Q4H PRN ORAL Mild Pain/Temp > 100.5 10/26/18 14:15 11/25/18 14:14 Acetaminophen/ Hydrocodone Bitart ([place] 5/325) 1 tab Q6H PRN ORAL Moderate Pain (Pain Scale 4-6) 10/26/18 14:15 11/02/18 14:14 10/28/18 05:57 Aspirin (ASA) 81 mg DAILY ORAL 10/27/18 09:00 11/26/18 08:59 10/27/18 09:04 Dextrose (Dextrose 50%) 25 ml Q30M PRN IV Hypoglycemia 10/27/18 06:45 11/26/18 06:44 Dextrose (Dextrose 50%) 50 ml Q30M PRN IV Hypoglycemia 10/27/18 06:45 11/26/18 06:44 Diphenhydramine HCl (Benadryl) 25 mg Q4H PRN ORAL Itching 10/27/18 20:30 11/26/18 20:29 10/28/18 02:33 Docusate Sodium (Colace) 100 mg THREE TIMES A DAY ORAL 10/26/18 18:00 11/25/18 17:59 10/27/18 17:38 Hydralazine HCl (Apresoline) 25 mg Q4HR PRN ORAL bp over 160 syst 10/26/18 17:00 11/25/18 16:59 10/27/18 17:38 Insulin Aspart (NovoLOG) BEFORE MEALS AND HS SUBQ 10/27/18 06:30 11/26/18 06:29 10/28/18 05:53 Insulin Detemir (Levemir) 8 units DAILY SUBQ 10/27/18 09:00 11/26/18 08:59 10/27/18 09:34 Levetiracetam 100 ml @ 400 mls/hr Q12HR IVPB 10/27/18 11:30 11/26/18 11:29 10/27/18 21:24 Metoprolol Tartrate (Lopressor) 12.5 mg Q12HR ORAL 10/26/18 21:00 11/25/18 20:59 10/27/18 20:39 Nateglinide (Starlix) 120 mg TIAC ORAL 10/27/18 11:30 11/26/18 06:29 10/28/18 05:49 Pantoprazole (Protonix) 40 mg DAILY ORAL 10/28/18 09:00 11/25/18 20:59 Tom Banda MD October 28, 2018 06:23
[2018-10-28 07:11] LABS: BASOPHILS % (AUTO) 0.6 % (0.0-2.0); EOSINOPHILS % (AUTO) 2.2 % (0.0-3.0); HEMATOCRIT 35.3 % (37.0-47.0); LYMPHOCYTES % (AUTO) 36.8 % (20.0-45.0); MEAN CORPUSCULAR VOLUME 94 FL (80-99); MONOCYTES % (AUTO) 4.2 % (1.0-10.0); NEUTROPHILS % (AUTO) 56.2 % (45.0-75.0); PLATELET COUNT 248 K/UL (150-450); RED BLOOD COUNT 3.76 M/UL (4.20-5.40); RED CELL DISTRIBUTION WIDTH 11.9 % (11.6-14.8)
--- NOTE | 2018-10-28 07:13 | NUR ---
HAND-OFF: Report given to El GUNDERSON. Patient asleep in bed. Bed alarm on, bed locked, in low position, call light within reach. Plan of care endorsed.
--- NOTE | 2018-10-28 07:15 | NUR ---
NURSE NOTES: Pt received from Bobbi RN alert and oriented x4 with no acute s/s of distress. SCDs refused, pt informed of risks and benefits of SCDs, but pt stated "I don't want them on, they're annoying and too hot on my legs." IV site asymptomatic and patent, on saline lock. Fall precautions implemented - bed alarm on, bed in lowest position, wristband on. Call light and belongings within reach.
[2018-10-28 07:20] LABS: ALANINE AMINOTRANSFERASE 14 U/L (12-78); ALBUMIN 2.9 G/DL (3.4-5.0); ALBUMIN/GLOBULIN RATIO 0.8 (1.0-2.7); ALKALINE PHOSPHATASE 111 U/L (46-116); ANION GAP 5 mmol/L (5-15); ASPARTATE AMINO TRANSFERASE 11 U/L (15-37); BILIRUBIN,TOTAL 0.4 MG/DL (0.2-1.0); BLOOD UREA NITROGEN 16 mg/dL (7-18); CALCIUM 8.6 MG/DL (8.5-10.1); CARBON DIOXIDE 30 MMOL/L (21-32); CHLORIDE 99 MMOL/L (98-107); CREATININE 0.6 MG/DL (0.55-1.30); PHOSPHORUS 4.5 MG/DL (2.5-4.9); SODIUM 134 MMOL/L (136-145)
[2018-10-28 08:00] VITALS: BP 123/61
--- NOTE | 2018-10-28 08:30 | History and Physical Report ---
DATE OF ADMISSION: 10/26/2018 HISTORY OF PRESENT ILLNESS: The patient . The patient has history of . The patient has been complaining of basically stuttering for the past 3 to 4 days, dizziness, headache, left-sided weakness. The patient has history of CVAs in the past. The patient is also noted to have facial droop. It has been going on for 3 to 4 days. Admitted for hypertension and history of CVA. CT scan does not show anything acute. PAST MEDICAL HISTORY: History of back pain, history of CVA, history of NIDDM, hypertension, seizure disorder, and hyperlipidemia. PAST SURGICAL HISTORY: . SOCIAL HISTORY: History of smoking, history of drug abuse. No history of alcohol abuse. ALLERGIES: To guaifenesin, ibuprofen, penicillin, and Dilantin. MEDICATIONS: Albuterol, Keppra, [place]. FAMILY HISTORY: Noncontributory. REVIEW OF SYSTEMS: HEENT: Denies headaches. RESPIRATORY: Denies shortness of breath. Denies cough. CARDIOVASCULAR: Denies chest pain. GASTROINTESTINAL: Denies nausea, vomiting, or diarrhea. CENTRAL NERVOUS SYSTEMS: Denies change in vision or speech pattern. Does have facial droop . PHYSICAL EXAMINATION: VITAL SIGNS: Temperature 97.8, pulse is 68, blood pressure 160/89. HEENT: PERRLA. NECK: Supple. CHEST: Clear to auscultation CARDIOVASCULAR: Regular rate and rhythm. No murmurs or extra sounds. GASTROINTESTINAL: Soft, nontender, and nondistended. No organomegaly. EXTREMITIES: No edema. NEUROLOGIC: Reflexes equal on both sides. The patient has some mild deficits, weakness of the left side. Some facial droop and mild stuttering. Otherwise, cranial nerves II through XII are intact. Reflexes equal on both sides. LABORATORY DATA: WBC of 6.4, hemoglobin of 12.6, and platelets 239. Sodium 140, potassium 3.9, BUN of 14, creatinine 0.7, and glucose of 259. Troponin 0.01. ASSESSMENT AND PLAN: Elevated blood sugar the patient acute CVA. and Dr. Zepeda has also been seeing the patient for the dehydration and hypertension management. Ali Robe Lino DR: SRIDHAR JOB#: [id number] CC:
[2018-10-28] MEDS: Docusate 100mg cap ORAL SCH ×3 (08:33→17:53)
[2018-10-28] MEDS: levETIRAcetam 500mg/NS100ml 100 ML IVPB SCH (08:33)
[2018-10-28] MEDS: Aspirin Baby 81mg ORAL SCH (08:33)
[2018-10-28] MEDS: Metoprolol Tartrate 12.5mg TAB ORAL SCH ×2 (08:34→20:43)
[2018-10-28] MEDS ORDERED: Levemir Flexpen SUBQ SCH (09:00)
--- NOTE | 2018-10-28 09:29 | Nephrology Progress Note ---
Assessment/Plan Problem List: (1) HTN (hypertension) (2) Hyperglycemia Assessment: DMII (3) Seizure Assessment HTN - DM OOC h/o Psych - Urine + for MJ Plan medium cho- easy chew- adentulous lopressor, ASA , continue Keppra change to po starlix for BS per orders mag IV ? med- surg Subjective ROS Limited/Unobtainable: No Objective Objective Last 24 Hour Vital Signs Date Time Temp Pulse Resp B/P (MAP) Pulse Ox O2 Delivery O2 Flow Rate FiO2 10/28/18 08:34 60 123/61 10/28/18 04:00 98.8 72 18 137/75 (95) 96 10/28/18 03:59 69 10/28/18 00:00 66 10/28/18 00:00 97.3 73 18 121/69 (86) 97 10/27/18 21:10 96.8 10/27/18 21:00 Room Air 10/27/18 20:39 75 132/77 10/27/18 20:00 98.3 75 18 132/77 (95) 96 10/27/18 20:00 80 10/27/18 17:38 181/94 10/27/18 16:05 78 10/27/18 16:00 96.8 68 23 181/94 (123) 99 10/27/18 12:00 97.8 68 24 160/81 (107) 95 10/27/18 11:57 74 Intake and Output 10/27/18 10/28/18 19:00 07:00 Intake Total 440 ml Balance 440 ml Intake Oral 240 ml IV Total 200 ml # Voids 3 Laboratory Tests 10/28/18 05:25: White Blood Count 8.0, Red Blood Count 3.76L, Hemoglobin 12.0, Hematocrit 35.3L , Mean Corpuscular Volume 94, Mean Corpuscular Hemoglobin 31.9H, Mean Corpuscular Hemoglobin Concent 33.9, Red Cell Distribution Width 11.9, Platelet Count 248, Mean Platelet Volume 6.4L, Neutrophils (%) (Auto) 56.2, Lymphocytes ( %) (Auto) 36.8, Monocytes (%) (Auto) 4.2, Eosinophils (%) (Auto) 2.2, Basophils (%) (Auto) 0.6, Sodium Level 134L, Potassium Level 4.0, Chloride Level 99, Carbon Dioxide Level 30, Anion Gap 5, Blood Urea Nitrogen 16, Creatinine 0.6, Estimat Glomerular Filtration Rate > 60, Glucose Level 239H, Calcium Level 8.6, Phosphorus Level 4.5, Magnesium Level 1.5L, Total Bilirubin 0.4, Aspartate Amino Transf (AST/SGOT) 11L, Alanine Aminotransferase (ALT/SGPT) 14, Alkaline Phosphatase 111, Total Protein 6.6, Albumin 2.9L, Globulin 3.7, Albumin/ Globulin Ratio 0.8L Height (Feet): 5 Height (Inches): 5.00 Weight (Pounds): 160 General Appearance: no apparent distress Objective no change Adam Zepeda MD October 28, 2018 09:29
[2018-10-28 12:00] VITALS: BP_SYST 125; BP_SYST 134; BP_DIAS 64; BP_DIAS 74
[2018-10-28 13:03] LABS: APPEARANCE,URINE CLEAR; BILIRUBIN, URINE NEGATIVE (NEGATIVE); COLOR,URINE PALE YELLOW; GLUCOSE, URINE (UA) 1+ (NEGATIVE); KETONES,URINE NEGATIVE (NEGATIVE); LEUKOCYTE ESTERASE ,URINE 1+ (NEGATIVE); NITRITE,URINE NEGATIVE (NEGATIVE); PH,URINE 7 (4.5-8.0); PROTEIN,URINE NEGATIVE (NEGATIVE); UROBILINOGEN,URINE NORMAL MG/DL (0.0-1.0)
--- NOTE | 2018-10-28 13:10 | NUR ---
NURSE NOTES: Patient arrived on unit via hospital bed without incident. Patient stable. Denies pain or SOB. Patient oriented to room, call light, and unit. Patient encouraged to use call light for assistance, verbalized understanding. Plan of care discussed with patient. Skin is clean, dry, and intact. IV patent with no s/s infiltration, phlebitis. Seizure precautions in place. Patient in good spirits in bed in locked and lowest position and call light within reach. All safety measures provided. Will continue to monitor.
--- NOTE | 2018-10-28 13:14 | NUR ---
TRANSFER TO FLOOR: Patient transferred to [facility], per Dr. Zepeda. Report given to Sophia and Gretta TOLBERT. Belongings and medications given to Sophia GUNDERSON. Family and or S/O informed of transfer.
[2018-10-28] MEDS ORDERED: HydrALAZINE 25mg tab ORAL PRN (13:30)
[2018-10-28 16:00] VITALS: BP 159/92
--- NOTE | 2018-10-28 19:16 | NUR ---
HAND-OFF: Report given to Jesenia GUNDERSON. Patient is stable.
--- NOTE | 2018-10-28 19:37 | NUR ---
NURSE NOTES: Received patient comfortably sleeping.
[2018-10-28 20:00] VITALS: BP 150/87
--- NOTE | 2018-10-28 20:54 | General Progress Note ---
Assessment/Plan Problem List: (1) CVA (cerebral vascular accident) ICD Codes: I63.9 - Cerebral infarction, unspecified SNOMED: 532656933 (2) Diabetes mellitus out of control ICD Codes: E11.65 - Type 2 diabetes mellitus with hyperglycemia SNOMED: 59297500, 826690609 (3) Hyperglycemia ICD Codes: R73.9 - Hyperglycemia, unspecified SNOMED: 31819567 (4) HTN (hypertension) ICD Codes: I10 - Essential (primary) hypertension SNOMED: 42933760 Status: progressing Assessment/Plan: s/p cva htn niddm sugar is improving afebrile not safe for dc yet Subjective ROS Limited/Unobtainable: Yes Allergies: Coded Allergies: GUAIFENESIN (Verified Allergy, Unknown, 08/31/15) IBUPROFEN (Verified Allergy, Unknown, Hives, 10/26/18) TOLERATED ASPIRIN PENICILLINS (Verified Allergy, Unknown, 08/31/15) PHENYTOIN (Verified Allergy, Unknown, 08/31/15) Objective Last 24 Hour Vital Signs Date Time Temp Pulse Resp B/P (MAP) Pulse Ox O2 Delivery O2 Flow Rate FiO2 10/28/18 20:43 67 150/85 10/28/18 16:00 97.9 65 18 159/92 (114) 94 10/28/18 12:00 82 10/28/18 12:00 98.2 68 20 125/64 (84) 96 10/28/18 09:00 Room Air 10/28/18 08:34 60 123/61 10/28/18 08:00 79 10/28/18 08:00 98.8 67 22 123/61 (81) 95 10/28/18 04:00 98.8 72 18 137/75 (95) 96 10/28/18 03:59 69 10/28/18 00:00 66 10/28/18 00:00 97.3 73 18 121/69 (86) 97 10/27/18 21:10 96.8 10/27/18 21:00 Room Air Intake and Output 10/27/18 10/28/18 19:00 07:00 Intake Total 440 ml Balance 440 ml Intake Oral 240 ml IV Total 200 ml # Voids 3 Laboratory Tests 10/28/18 05:25: White Blood Count 8.0, Red Blood Count 3.76L, Hemoglobin 12.0, Hematocrit 35.3L , Mean Corpuscular Volume 94, Mean Corpuscular Hemoglobin 31.9H, Mean Corpuscular Hemoglobin Concent 33.9, Red Cell Distribution Width 11.9, Platelet Count 248, Mean Platelet Volume 6.4L, Neutrophils (%) (Auto) 56.2, Lymphocytes ( %) (Auto) 36.8, Monocytes (%) (Auto) 4.2, Eosinophils (%) (Auto) 2.2, Basophils (%) (Auto) 0.6, Sodium Level 134L, Potassium Level 4.0, Chloride Level 99, Carbon Dioxide Level 30, Anion Gap 5, Blood Urea Nitrogen 16, Creatinine 0.6, Estimat Glomerular Filtration Rate > 60, Glucose Level 239H, Calcium Level 8.6, Phosphorus Level 4.5, Magnesium Level 1.5L, Total Bilirubin 0.4, Aspartate Amino Transf (AST/SGOT) 11L, Alanine Aminotransferase (ALT/SGPT) 14, Alkaline Phosphatase 111, Total Protein 6.6, Albumin 2.9L, Globulin 3.7, Albumin/ Globulin Ratio 0.8L 10/28/18 12:23: Urine Color Pale yellow, Urine Appearance Clear, Urine pH 7, Urine Specific [place] 1.005, Urine Protein Negative, Urine Glucose (UA) 1+H, Urine Ketones Negative, Urine Blood Negative, Urine Nitrite Negative, Urine Bilirubin Negative , Urine Urobilinogen Normal, Urine Leukocyte Esterase 1+H, Urine RBC 0, Urine WBC 0-2, Urine Squamous Epithelial Cells Occasional, Urine Bacteria Occasional Height (Feet): 5 Height (Inches): 5.00 Weight (Pounds): 160 Cardiovascular: normal rate Respiratory/Chest: lungs clear Abdomen: soft Josefa Lino MD October 28, 2018 20:54
[2018-10-29] VITALS: BP 151/81
[2018-10-29] MEDS: HYDROcodone/Acetamin 5/325 tab ORAL PRN (03:08)
[2018-10-29 04:00] VITALS: BP 146/80
[2018-10-29] MEDS: NovoLOG Insulin Flexpen SUBQ SCH ×2 (05:40→11:57)
--- NOTE | 2018-10-29 06:26 | General Progress Note ---
Assessment/Plan Problem List: (1) Diabetes mellitus out of control ICD Codes: E11.65 - Type 2 diabetes mellitus with hyperglycemia SNOMED: 50572857, 733900623 (2) Seizure ICD Codes: R56.9 - Unspecified convulsions SNOMED: 29654819 (3) Hyperglycemia ICD Codes: R73.9 - Hyperglycemia, unspecified SNOMED: 24500043 (4) HTN (hypertension) ICD Codes: I10 - Essential (primary) hypertension SNOMED: 05567605 (5) Stroke-like episode ICD Codes: I63.9 - Cerebral infarction, unspecified SNOMED: 000929089 Status: progressing Assessment/Plan: increase Levemir to 20 units qhs continue Starlix 120 mg ac tid continue NISS ac / hs Subjective ROS Limited/Unobtainable: Yes Allergies: Coded Allergies: GUAIFENESIN (Verified Allergy, Unknown, 08/31/15) IBUPROFEN (Verified Allergy, Unknown, Hives, 10/26/18) TOLERATED ASPIRIN PENICILLINS (Verified Allergy, Unknown, 08/31/15) PHENYTOIN (Verified Allergy, Unknown, 08/31/15) Subjective events noted fasligu glucose elevated Item Value Date Time Bedside Blood Glucose 253 mg/dl H 10/29/18 0623 Bedside Blood Glucose 197 mg/dl H 10/28/18 2107 Bedside Blood Glucose 206 mg/dl H 10/28/18 1655 Bedside Blood Glucose 267 mg/dl H 10/28/18 1216 Bedside Blood Glucose 257 mg/dl H 10/28/18 0840 Bedside Blood Glucose 241 mg/dl H 10/28/18 0553 Objective Last 24 Hour Vital Signs Date Time Temp Pulse Resp B/P (MAP) Pulse Ox O2 Delivery O2 Flow Rate FiO2 10/29/18 04:00 98.1 65 18 146/80 (102) 97 10/29/18 03:30 97.9 10/29/18 00:00 97.9 68 18 151/81 (104) 97 10/28/18 21:08 Room Air 10/28/18 20:43 67 150/85 10/28/18 20:00 98.0 67 19 150/87 (108) 97 10/28/18 16:00 97.9 65 18 159/92 (114) 94 10/28/18 12:00 82 10/28/18 12:00 98.2 68 20 125/64 (84) 96 10/28/18 09:00 Room Air 10/28/18 08:34 60 123/61 10/28/18 08:00 79 10/28/18 08:00 98.8 67 22 123/61 (81) 95 Intake and Output 10/28/18 10/29/18 19:00 07:00 Intake Total 700 ml 1000 ml Balance 700 ml 1000 ml Intake Oral 300 ml 1000 ml IV Total 400 ml # Voids 2 5 # Bowel Movements 1 Laboratory Tests 10/28/18 12:23: Urine Color Pale yellow, Urine Appearance Clear, Urine pH 7, Urine Specific [place] 1.005, Urine Protein Negative, Urine Glucose (UA) 1+H, Urine Ketones Negative, Urine Blood Negative, Urine Nitrite Negative, Urine Bilirubin Negative , Urine Urobilinogen Normal, Urine Leukocyte Esterase 1+H, Urine RBC 0, Urine WBC 0-2, Urine Squamous Epithelial Cells Occasional, Urine Bacteria Occasional Height (Feet): 5 Height (Inches): 5.00 Weight (Pounds): 160 General Appearance: no apparent distress Neck: normal alignment Cardiovascular: normal rate Respiratory/Chest: decreased breath sounds Abdomen: normal bowel sounds Objective Current Medications Medications (Trade) Dose Ordered Sig/Cecil Route PRN Reason Start Time Stop Time Status Last Admin Dose Admin Acetaminophen (Tylenol) 650 mg Q4H PRN ORAL Mild Pain/Temp > 100.5 10/28/18 13:28 11/25/18 13:27 Acetaminophen/ Hydrocodone Bitart ([place] 5/325) 1 tab Q6H PRN ORAL Moderate Pain (Pain Scale 4-6) 10/28/18 13:30 11/02/18 13:29 10/29/18 03:08 Aspirin (ASA) 81 mg DAILY ORAL 10/29/18 09:00 11/26/18 08:59 Dextrose (Dextrose 50%) 25 ml Q30M PRN IV Hypoglycemia 10/28/18 13:28 11/26/18 13:27 Dextrose (Dextrose 50%) 50 ml Q30M PRN IV Hypoglycemia 10/28/18 13:29 11/26/18 13:28 Diphenhydramine HCl (Benadryl) 25 mg Q4H PRN ORAL Itching 10/28/18 13:29 11/26/18 13:28 10/28/18 17:53 Docusate Sodium (Colace) 100 mg THREE TIMES A DAY ORAL 10/28/18 18:00 11/25/18 17:59 10/28/18 17:53 Hydralazine HCl (Apresoline) 25 mg Q4H PRN ORAL bp over 160 syst 10/28/18 13:30 11/27/18 13:29 Insulin Aspart (NovoLOG) BEFORE MEALS AND HS SUBQ 10/28/18 16:30 11/26/18 06:29 10/29/18 05:40 Insulin Detemir (Levemir) 16 units DAILY SUBQ 10/29/18 09:00 11/26/18 08:59 Levetiracetam (Keppra) 500 mg Q12HR ORAL 10/28/18 21:00 11/27/18 20:59 10/28/18 20:42 Metoprolol Tartrate (Lopressor) 12.5 mg Q12HR ORAL 10/28/18 21:00 11/25/18 20:59 10/28/18 20:43 Nateglinide (Starlix) 120 mg TIAC ORAL 10/28/18 16:30 11/26/18 06:29 10/29/18 05:35 Pantoprazole (Protonix) 40 mg DAILY ORAL 10/29/18 09:00 11/25/18 20:59 Tom Banda MD October 29, 2018 06:26
--- NOTE | 2018-10-29 07:15 | NUR ---
HAND-OFF: Report given to JALYN Nj.
--- NOTE | 2018-10-29 07:30 | NUR ---
NURSE NOTES: Patient is sitting up at the edge of the bed awake and able to verbalize needs. Patient denies pain or SOB. Patient encouraged to use call light for assistance, verbalized understanding. Plan of care discussed with patient. Patient is in good spirits with call light within reach. Seizure precautions provided. All safety measures provided. Will continue to monitor.
[2018-10-29 08:00] VITALS: BP 127/80
[2018-10-29] MEDS ORDERED: Levemir Flexpen SUBQ SCH (09:00)
[2018-10-29] MEDS ORDERED: Aspirin Baby 81mg ORAL SCH (09:00)
[2018-10-29] MEDS: Docusate 100mg cap ORAL SCH (09:04)
[2018-10-29] MEDS: Metoprolol Tartrate 12.5mg TAB ORAL SCH (09:04)
--- NOTE | 2018-10-29 10:34 | Neurology Progress Note ---
Interim History Interim History ROS Limited/Unobtainable: Yes Complaints: Stuttering speech and facial weakness Interim History This visit was conducted on October 28, [address] Mauricio Richards. Objective Physical Exam Last Vital Signs Date Time Temp Pulse Resp B/P (MAP) Pulse Ox O2 Delivery O2 Flow Rate FiO2 10/29/18 09:04 70 127/80 10/29/18 09:00 Room Air 10/29/18 08:00 98.4 16 95 Laboratory Tests Test 10/28/18 12:23 Urine Color Pale yellow Urine Appearance Clear Urine pH 7 (4.5-8.0) Urine Specific [place] 1.005 (1.005-1.035) Urine Protein Negative (NEGATIVE) Urine Glucose (UA) 1+ (NEGATIVE) H Urine Ketones Negative (NEGATIVE) Urine Blood Negative (NEGATIVE) Urine Nitrite Negative (NEGATIVE) Urine Bilirubin Negative (NEGATIVE) Urine Urobilinogen Normal MG/DL (0.0-1.0) Urine Leukocyte Esterase 1+ (NEGATIVE) H Urine RBC 0 /HPF (0 - 2) Urine WBC 0-2 /HPF (0 - 2) Urine Squamous Epithelial Cells Occasional /LPF Urine Bacteria Occasional /HPF (NONE) Impression/Recommendations Status: progressing Recommendations Consider outpatient follow up with Neurology for EEG testing to determine if there is uncontrolled simple partial seizure activity. Patient do not appear to be neurologically unstable at this time. No Acute CVA as per MRI, 5% of acute strokes are not captured on MRI so this diagnosis is still possible. Swallow assessment performed but unclear if the patient had a barium swallow study at this time. IF not- this is still recommended . Please control HYPERGLYCEMIA with medication and ISS Correct/ Replete Berta Womack N.P. October 29, 2018 10:34
--- NOTE | 2018-10-29 10:43 | Neurology Progress Note ---
Interim History Interim History ROS Limited/Unobtainable: Yes Complaints: Stuttering speech and facial weakness Events: Ambulatory with improved strength/ speech Interim History This visit was conducted on October 29, 2018. Objective Physical Exam Last Vital Signs Date Time Temp Pulse Resp B/P (MAP) Pulse Ox O2 Delivery O2 Flow Rate FiO2 10/29/18 09:04 70 127/80 10/29/18 09:00 Room Air 10/29/18 08:00 98.4 16 95 Laboratory Tests Test 10/28/18 12:23 Urine Color Pale yellow Urine Appearance Clear Urine pH 7 (4.5-8.0) Urine Specific [place] 1.005 (1.005-1.035) Urine Protein Negative (NEGATIVE) Urine Glucose (UA) 1+ (NEGATIVE) H Urine Ketones Negative (NEGATIVE) Urine Blood Negative (NEGATIVE) Urine Nitrite Negative (NEGATIVE) Urine Bilirubin Negative (NEGATIVE) Urine Urobilinogen Normal MG/DL (0.0-1.0) Urine Leukocyte Esterase 1+ (NEGATIVE) H Urine RBC 0 /HPF (0 - 2) Urine WBC 0-2 /HPF (0 - 2) Urine Squamous Epithelial Cells Occasional /LPF Urine Bacteria Occasional /HPF (NONE) Neurologic Exam Mental Status: awake, alert, oriented x4, normal cognition, normal recent memory, normal remote memory, preserved visuospatial function Speech: other - stuttering speech and right facial weakness, with weak tongue protrusion. Language: normal language Cranial Nerve II: fundus normal, visual wen, no papilledema Cranial Nerves III, IV, : PERRLA, EOMI Cranial Nerve V: normal facial sensations, temporales function normal Cranial Nerve VIII: normal hearing, no nystagmus Cranial Nerve IX: normal palate elevation Cranial Nerve X: no voice hoarseness Cranial Nerve XI: SCM symmetric, trapezii function normal Cranial Nerve XII: other Motor System: normal muscle tone, other - weakness in Left face, left upper extremity 3/5 and LE 2/5. Sensory: normal pinprick, normal light touch Deep Tendon Reflexes: 1+ bicep (L), 1+ bicep (R), 1+ tricep (L), 1+ tricep (R) , 1+ brachioradialis (L), 1+ brachioradialis (R), 1+ knee (L), 1+ knee (R), 1+ ankle (L), 1+ ankle (R) Impression/Recommendations Status: progressing, unchanged Diagnostic Impression Consider outpatient follow up with Neurology for EEG testing to determine if there is uncontrolled simple partial seizure activity. Patient do not appear to be neurologically unstable at this time. No Acute CVA as per MRI, 5% of acute strokes are not captured on MRI so this diagnosis is still possible. Swallow assessment performed but unclear if the patient had a barium swallow study at this time. IF not- this is still recommended . Recommendations Continue ASA, Statin, and maintain SBP< 140 Continue Neuro Obs EEG was negative for epileptiform discharges Stable for discharge with recommendation for Glycemic Control and Neurology follow up as outpatient . Will only provide limited prescription for this patient as she REQUIRES Neurology follow up. Berta Duran N.P. October 29, 2018 10:43
--- NOTE | 2018-10-29 11:20 | NUR ---
NURSE NOTES: Spoke to Berta LOPEZ regarding discharge and new order received. Order read back and carried out.
[2018-10-29 12:00] VITALS: BP 123/81
--- NOTE | 2018-10-29 12:04 | NUR ---
RD ASSESSMENT & RECOMMENDATIONS SEE CARE ACTIVITY FOR COMPLETE ASSESSMENT DAILY ESTIMATED NEEDS: Needs based on DM, cardiac/ 62.5kg abw 25-30 kcals/kg 2004-6187 total kcals 1-1.3 g protein/kg 63-81 g total protein 25-30 mL/kg 2748-5248 total fluid mLs NUTRITION DIAGNOSIS: Altered nutrition related lab values R/T diabetes as evidenced by A1C of 9.5, elev POC glu (197-322) CURRENT DIET:CCHO MED, soft easy chew PO DIET RECOMMENDATIONS: CCHO LOW, LOW NA, texture per DENTAL OFFICE COORDINATOR ADDITIONAL RECOMMENDATIONS: * Standing wt for accurate CBW * Re-attempt DM diet ed: diet ed attempted on 10/28, pt not interested * Monitor BGs closely * Monitor lytes, replete as needed (low mag 1.5) * Add folic acid 1mg QD (low folate 7.3)
[2018-10-29] MEDS ORDERED: KEPPRA500 MG ORAL (12:08)
--- NOTE | 2018-10-29 12:56 | Nephrology Progress Note ---
Assessment/Plan Problem List: (1) HTN (hypertension) (2) Hyperglycemia Assessment: DMII (3) Seizure Assessment HTN - DM OOC h/o Psych - Urine + for MJ Plan medium cho- easy chew- adentulous lopressor, ASA , continue Keppra change to po starlix for BS per orders mag IV ? med- surg Subjective ROS Limited/Unobtainable: No Objective Objective Last 24 Hour Vital Signs Date Time Temp Pulse Resp B/P (MAP) Pulse Ox O2 Delivery O2 Flow Rate FiO2 10/29/18 09:04 70 127/80 10/29/18 09:00 Room Air 10/29/18 08:00 98.4 70 16 127/80 (96) 95 10/29/18 04:00 98.1 65 18 146/80 (102) 97 10/29/18 03:30 97.9 10/29/18 00:00 97.9 68 18 151/81 (104) 97 10/28/18 21:08 Room Air 10/28/18 20:43 67 150/85 10/28/18 20:00 98.0 67 19 150/87 (108) 97 10/28/18 16:00 97.9 65 18 159/92 (114) 94 Intake and Output 10/28/18 10/29/18 18:59 06:59 Intake Total 700 ml 1000 ml Balance 700 ml 1000 ml Intake Oral 300 ml 1000 ml IV Total 400 ml # Voids 2 5 # Bowel Movements 1 Current Medications Medications (Trade) Dose Ordered Sig/Cecil Route PRN Reason Start Time Stop Time Status Last Admin Dose Admin Acetaminophen (Tylenol) 650 mg Q4H PRN ORAL Mild Pain/Temp > 100.5 10/28/18 13:28 11/25/18 13:27 Acetaminophen/ Hydrocodone Bitart ([place] 5/325) 1 tab Q6H PRN ORAL Moderate Pain (Pain Scale 4-6) 10/28/18 13:30 11/02/18 13:29 10/29/18 03:08 Aspirin (ASA) 81 mg DAILY ORAL 10/29/18 09:00 11/26/18 08:59 10/29/18 09:04 Dextrose (Dextrose 50%) 25 ml Q30M PRN IV Hypoglycemia 10/28/18 13:28 11/26/18 13:27 Dextrose (Dextrose 50%) 50 ml Q30M PRN IV Hypoglycemia 10/28/18 13:29 11/26/18 13:28 Diphenhydramine HCl (Benadryl) 25 mg Q4H PRN ORAL Itching 10/28/18 13:29 11/26/18 13:28 10/28/18 17:53 Docusate Sodium (Colace) 100 mg THREE TIMES A DAY ORAL 10/28/18 18:00 11/25/18 17:59 10/29/18 09:04 Hydralazine HCl (Apresoline) 25 mg Q4H PRN ORAL bp over 160 syst 10/28/18 13:30 11/27/18 13:29 Insulin Aspart (NovoLOG) BEFORE MEALS AND HS SUBQ 10/28/18 16:30 11/26/18 06:29 10/29/18 11:57 Insulin Detemir (Levemir) 16 units DAILY SUBQ 10/29/18 09:00 11/26/18 08:59 10/29/18 09:05 Levetiracetam (Keppra) 500 mg Q12HR ORAL 10/28/18 21:00 11/27/18 20:59 10/29/18 09:04 Metoprolol Tartrate (Lopressor) 12.5 mg Q12HR ORAL 10/28/18 21:00 11/25/18 20:59 10/29/18 09:04 Nateglinide (Starlix) 120 mg TIAC ORAL 10/28/18 16:30 11/26/18 06:29 10/29/18 11:55 Pantoprazole (Protonix) 40 mg DAILY ORAL 10/29/18 09:00 11/25/18 20:59 10/29/18 09:04 Height (Feet): 5 Height (Inches): 5.00 Weight (Pounds): 160 General Appearance: no apparent distress, other - ambulating Respiratory/Chest: lungs clear Abdomen: soft Objective no change Adam Zepeda MD October 29, 2018 12:56
--- NOTE | 2018-10-29 13:20 | NUR ---
NURSE NOTES: Patient discharge home as ordered. Patient is stable Denies pain or SOB. Patient has no IV access. Skin is clean, dry, and intact. Patient was given thorough discharge instructions. Patient verbalized understanding. Patient was informed that [facility] pharmacy would be filling her prescriptions, patient refused to wait for medication. Patient was given thorough patient teaching about the importance of taking medication as ordered, patient verbalized understanding but continued to refuse. Patient aware of all risks and benefits. Patient was instructed to pear picker medication at her soonest convenience, patient agreed to pear picker medication. Medication instructions given to patient, patient verbalized understanding. Patient has all belongings. Patient assisted into taxi by RN without incident.
--- NOTE | 2018-11-01 08:12 | Discharge Summary ---
Discharge Summary Discharge Summary _ DATE OF ADMISSION: 10/26/2018 DATE OF DISCHARGE: 10/29/2018 DISCHARGED BY: Dr Lino REASON FOR ADMISSION: 53 years old female with past medical history of seizure disorder, hypertension , diabetes mellitus, history of CVA, presented with stroke like symptoms , that started 4 days ag, o including slurred speech and generalized weakness. No seizure activity was reported. CT of the head which showed no evidence of acute intracranial hemorrhage, mass- effect or edema. Small areas of cortical encephalomalacia laterally, presumed to be old infarcts. Chronic small vessel disease. Chest x-ray revealed no acute cardiopulmonary pathology. Laboratory work-up revealed no leukocytosis, stable hemoglobin and hematocrit , stable electrolytes. Glucose 359. Stable LFT. EKG revealed normal sinus rhythm , no acute ischemic changes. Troponin negative. Urine toxicology screen was positive for marijuana Urinalysis revealed +1 glucose, +1 leukocyte esterase, no evidence of UTI. Patient was admitted for further management. CONSULTANTS: neurologist Dr. Richards sheet sorter Dr. Zepeda unit assistant Dr. Banda [facility] COURSE: Patient admitted. Neurologist and unit assistant followed. EEG was abnormal , characterized by bilateral frontal polymorphic delta activity seen during drowsiness. Study was consistent with bilateral frontal focal dysfunction. MRI of the brain revealed no evidence of acute infarct. No acute intracranial hemorrhage, mass-effect or midline shift. However, per neurologist, 5% of acute strokes not captured on MRI, and therefore diagnosis of CVA was still possible. Small area of encephalomalacia in the bilateral frontal and parietal lobes, likely related to areas of chronic infarct. Lipid panel revealed borderline LDL of 103 ,total cholesterol 171 ,HDL 54. Stable B12 ,folate, and TSH. Patient started on antiplatelet therapy with aspirin and statin. Seizure precautions were maintained. Keppra was continued. No evidence of seizure activity while in the hospital. Blood sugar was managed with long-acting Levemir and Starlix before meals. Sliding scale of insulin was on board as needed. Inspector Canned Food Reconditioning further optimized blood sugar management. Hemoglobin A1c 9.5, clearly not at goal. Patient will need close follow-up with primary care provider to optimize anti- glycemic control. Valve Machine Operator followed. Renal parameters and electrolytes were closely monitored, electrolytes/ magnesium corrected as needed. Blood pressure was managed with beta-abilio. GI prophylaxis provided. Bedside swallow evaluation revealed mild to moderate right-sided facial weakness . Patient had silent aspiration risk due to probable stroke-like episode. Per quality of life initiated soft, easy chew diet with thin liquids with aspiration precaution. Recommended video swallow evaluation which can be done as outpatient. Neurologist cleared patient for discharge. Per neurologist, patient did not appear to be neurologically unstable at this time . EEG was negative for epileptiform discharges. Neurologist recommended outpatient neurology evaluation. Patient clinically stabilized and was ready for discharge home. Outpatient follow-up with primary care provider for anti-glycemic regimen. Outpatient follow-up with neurologist. FINAL DIAGNOSES: Stroke like episode Possible acute stroke Cerebrovascular disease with history of prior CVA Diabetes mellitus out of control with hyperglycemia Seizure disorder Hypertension Hypomagnesemia DISCHARGE MEDICATIONS: See Medication Reconciliation list. DISCHARGE INSTRUCTIONS: Patient was discharged home. Follow up with primary care provider in one week. I have been assigned to dictate discharge summary for this account. I was not involved in the patient's management. Elizabeth Sanchez NP November 01, 2018 08:12
== END 2018-10-29 13:00 | disposition home or self-care (01) | DRG 45 ==
LOC: EMR 10:00 → 2E 10:22 → EDBEDREQ 11:14 → 3E 10-28 13:13
DX: I63.9 Cerebral infarction, unspecified (principal); G93.41 Metabolic encephalopathy; E11.65 Type 2 diabetes mellitus with hyperglycemia; E83.42 Hypomagnesemia; R47.81 Slurred speech; I10 Essential (primary) hypertension; G40.909 Epilepsy, unspecified, not intractable, without status epilepticus; Z88.6 Allergy status to analgesic agent; Z88.0 Allergy status to penicillin; Z88.8 Allergy status to other drugs, medicaments and biological substances; R29.810 Facial weakness; I69.354 Hemiplegia and hemiparesis following cerebral infarction affecting left non-dominant side
CPT/HCPCS: 36415; 70450; 70551; 71045; 80053; 80061; 80299; 80307; 81001; 82550; 82553; 82607; 82746; 82962; 82977; 83036; 83735; 83880; 84100; 84443; 84484; 84550; 85007; 85025; 85610; 85730; 86140; 93005; 95819; 99285; J1815; S5561

== ENCOUNTER 2019-01-20 16:36 | Inpatient (IN) | payer MEDICAID ==
[~2019-01-20] VITALS: Ht 170.2 cm; Wt 81.2 kg
[~2019-01-20 16:36] MED LIST changes: +KEPPRA500 MG ORAL
[2019-01-20 16:45] VITALS: BP 113/62
--- NOTE | 2019-01-20 16:45 | NUR ---
ED Nurse Note: pt walked in to ED due to multiple seizure activities yesterday. per pt, her niece dropped her to hospital. AAO x4. respirations even and non-labored noted. skin warm to touch. no open wound noted. pt walked in to ED but became weak and shake. VSS at the bed side. pt became more awake after 15 mins. on Keppra for seizure. on cardica monitor. no trauma noted.
[2019-01-20] MEDS ORDERED: KEPPRA1000 MG ORAL (17:01)
[2019-01-20] MEDS ORDERED: HYDROCHLOROTHIA25 MG ORAL (17:01)
[2019-01-20] MEDS ORDERED: ASPIRIN EC325 MG ORAL (17:01)
[2019-01-20] MEDS ORDERED: AMLODIPINE BESYL5 MG ORAL (17:01)
[2019-01-20] MEDS ORDERED: GLIPIZIDE5 G1 MC (17:01)
[2019-01-20] MEDS ORDERED: BENZTROPINE ME0.5 MG PO (17:01)
[2019-01-20] MEDS ORDERED: NITROSTAT0.4 M2 SL (17:01)
--- NOTE | 2019-01-20 17:55 | NUR ---
ED Nurse Note: pt start having seizure. NR applied in [address] Espinosa notified.
[2019-01-20] MEDS ORDERED: LORazepam Inj 2mg/ml 1ml IV ONE (18:00)
[2019-01-20 18:05] LABS: BASOPHILS % (AUTO) 1.3 % (0.0-2.0); EOSINOPHILS % (AUTO) 2.3 % (0.0-3.0); HEMATOCRIT 37.8 % (37.0-47.0); HEMOGLOBIN 12.8 G/DL (12.0-16.0); LYMPHOCYTES % (AUTO) 35.6 % (20.0-45.0); MEAN CORPUSCULAR VOLUME 94 FL (80-99); MONOCYTES % (AUTO) 5.2 % (1.0-10.0); NEUTROPHILS % (AUTO) 55.5 % (45.0-75.0); PLATELET COUNT 241 K/UL (150-450); RED BLOOD COUNT 4.04 M/UL (4.20-5.40); RED CELL DISTRIBUTION WIDTH 11.4 % (11.6-14.8); WHITE BLOOD COUNT 10.3 K/UL (4.8-10.8)
[2019-01-20 18:14] LABS: ANION GAP 8 mmol/L (5-15); BLOOD UREA NITROGEN 11 mg/dL (7-18); CALCIUM 9.1 MG/DL (8.5-10.1); CARBON DIOXIDE 30 MMOL/L (21-32); CHLORIDE 99 MMOL/L (98-107); CREATININE 0.7 MG/DL (0.55-1.30); INR 0.9 (0.9-1.1); SODIUM 136 MMOL/L (136-145)
[2019-01-20 18:18] LABS: ALANINE AMINOTRANSFERASE 9 U/L (12-78); ALBUMIN 3.3 G/DL (3.4-5.0); ALBUMIN/GLOBULIN RATIO 0.8 (1.0-2.7); ALKALINE PHOSPHATASE 113 U/L (46-116); ASPARTATE AMINO TRANSFERASE 19 U/L (15-37); BILIRUBIN,TOTAL 0.5 MG/DL (0.2-1.0)
--- NOTE | 2019-01-20 18:19 | Diagnostic Imaging Report ---
Indications: Seizures and dizziness, multiple seizure activity yesterday, altered mental status Technique: Spiral acquisitions obtained through the brain. Angled axial and coronal 5 x 5 mm slices were reconstructed. Total dose length product 1281.08 mGycm. CTDI vol(s) 70.38 mGy. Dose reduction achieved using automated exposure control Comparison: 10/26/2018 Findings: Areas of encephalomalacia are again demonstrated in the bilateral posterior parietal lobes and in the right frontal lobe. There is minimal encephalomalacia in the left frontal lobe as well. No acute intracranial hemorrhage or edema, mass effect, nor midline shift. The andrade-white differentiation is otherwise normal. There is mild age-related enlargement of the ventricles and extra axial CSF spaces and mild periventricular deep white matter low attenuation consistent with chronic microvascular ischemic changes. The visualized orbits and sinuses are unremarkable. The mastoids are clear. The calvarium is intact. Impression: Multiple old infarcts, also previously described Other chronic and age-related changes as noted Negative for acute intracranial bleed or mass effect This agrees with the preliminary interpretation provided overnight by [facility] teleradiology service. The CT scanner at [facility] is accredited by the [employer] and the scans are performed using protocols designed to limit radiation exposure to as low as reasonably achievable to attain images of sufficient resolution adequate for diagnostic evaluation.
[2019-01-20 18:32] LABS: APPEARANCE,URINE CLEAR; BILIRUBIN, URINE NEGATIVE (NEGATIVE); GLUCOSE, URINE (UA) NEGATIVE (NEGATIVE); KETONES,URINE NEGATIVE (NEGATIVE); LEUKOCYTE ESTERASE ,URINE 1+ (NEGATIVE); NITRITE,URINE NEGATIVE (NEGATIVE); PH,URINE 7 (4.5-8.0); PROTEIN,URINE 2+ (NEGATIVE); UROBILINOGEN,URINE 4 MG/DL (0.0-1.0)
[2019-01-20 18:34] LABS: COLOR,URINE YELLOW
[2019-01-20 18:43] VITALS: BP 95/46
--- NOTE | 2019-01-20 18:59 | NUR ---
HAND-OFF: Report given to JALYN Stevens.
--- NOTE | 2019-01-20 19:20 | Emergency Room Report ---
History of Present Illness General Chief Complaint: Seizure Source: Patient, Medical Record Present Illness HPI This patient has a history of CVA and seizures. She is on Keppra for her seizure disorder. She has had recurrent seizures for the past 4 days. According to her niece who is able to contact by phone, she was seen at an emergency department yesterday for the same thing. She was given Keppra orally and discharged home. She states that she continues to have breakthrough seizures. She states she is taking her Keppra. She denies recent illness. She denies fever or chills. She has nausea or vomiting. She has no other complaints. Allergies: Coded Allergies: GUAIFENESIN (Verified Allergy, Unknown, 08/31/15) IBUPROFEN (Verified Allergy, Unknown, Hives, 10/26/18) TOLERATED ASPIRIN PENICILLINS (Verified Allergy, Unknown, 08/31/15) PHENYTOIN (Verified Allergy, Unknown, 08/31/15) Patient History Past Medical History: see triage record, DM, HTN, CVA/TIA, seizures Social History: Denies: smoking, alcohol use, drug use Reviewed Nursing Documentation: PMH: Agreed; PSxH: Agreed Nursing Documentation-PMH Past Medical History: No History, Except For Hx Cardiac Problems: Yes Hx Hypertension: Yes Hx Diabetes: Yes Hx Cancer: No Hx Gastrointestinal Problems: No Hx Cerebrovascular Accident: Yes Hx Seizures: Yes Review of Systems All Other Systems: negative except mentioned in HPI Physical Exam Vital Signs Date Time Temp Pulse Resp B/P (MAP) Pulse Ox O2 Delivery O2 Flow Rate FiO2 01/20/19 16:36 97.9 82 27 128/76 (93) 100 Room Air Sp02 EP Interpretation: reviewed, normal General Appearance: no apparent distress, alert, GCS 15, non-toxic Head: normocephalic, atraumatic Eyes: bilateral eye normal inspection, bilateral eye PERRL ENT: hearing grossly normal, normal pharynx, no angioedema, normal voice Neck: full range of motion, supple/symm/no masses Respiratory: chest non-tender, lungs clear, normal breath sounds, no respiratory distress, no retraction, no accessory muscle use, speaking full sentences Cardiovascular #1: regular rate, rhythm, no edema Gastrointestinal: normal bowel sounds, non tender, soft, non-distended, no guarding, no rebound Rectal: deferred Musculoskeletal: back normal, normal range of motion, non-tender Neurologic: alert, oriented x3, responsive, other - slow speech with facial droop (baseline, hx of CVA) Psychiatric: judgement/insight normal, memory normal, mood/affect normal, no suicidal/homicidal ideation Medical Decision Making Diagnostic Impression: Primary Impression: Uncontrolled seizures ER Course This patient has known seizures after CVA. She is not controlled on her current seizure regimen. She states she is taking her Keppra as prescribed. She had a seizure here in the emergency department. She is given Ativan IV. She had no further seizures in the emergency department. The patient is currently failing outpatient seizure treatment and control. I suspect she is not following on with a neurologist or any other physician. The patient is admitted for uncontrolled seizures. Laboratory Tests Test 01/20/19 17:00 01/20/19 18:20 White Blood Count 10.3 K/UL (4.8-10.8) Red Blood Count 4.04 M/UL (4.20-5.40) L Hemoglobin 12.8 G/DL (12.0-16.0) Hematocrit 37.8 % (37.0-47.0) Mean Corpuscular Volume 94 FL (80-99) Mean Corpuscular Hemoglobin 31.6 PG (27.0-31.0) H Mean Corpuscular Hemoglobin Concent 33.8 G/DL (32.0-36.0) Red Cell Distribution Width 11.4 % (11.6-14.8) L Platelet Count 241 K/UL (150-450) Mean Platelet Volume 7.0 FL (6.5-10.1) Neutrophils (%) (Auto) 55.5 % (45.0-75.0) Lymphocytes (%) (Auto) 35.6 % (20.0-45.0) Monocytes (%) (Auto) 5.2 % (1.0-10.0) Eosinophils (%) (Auto) 2.3 % (0.0-3.0) Basophils (%) (Auto) 1.3 % (0.0-2.0) Prothrombin Time 9.7 SEC (9.30-11.50) Prothrombin Time INR 0.9 (0.9-1.1) PTT 23 SEC (23-33) Sodium Level 136 MMOL/L (136-145) Potassium Level 4.0 MMOL/L (3.5-5.1) Chloride Level 99 MMOL/L (98-107) Carbon Dioxide Level 30 MMOL/L (21-32) Anion Gap 8 mmol/L (5-15) Blood Urea Nitrogen 11 mg/dL (7-18) Creatinine 0.7 MG/DL (0.55-1.30) Estimate Glomerular Filtration Rate > 60 mL/min (>60) Glucose Level 281 MG/DL (74-106) H Calcium Level 9.1 MG/DL (8.5-10.1) Total Bilirubin 0.5 MG/DL (0.2-1.0) Aspartate Amino Transferase (AST) 19 U/L (15-37) Alanine Aminotransferase (ALT) 9 U/L (12-78) L Alkaline Phosphatase 113 U/L (46-116) Troponin I 0.000 ng/mL (0.000-0.056) Total Protein 7.6 G/DL (6.4-8.2) Albumin 3.3 G/DL (3.4-5.0) L Globulin 4.3 g/dL Albumin/Globulin Ratio 0.8 (1.0-2.7) L Urine Color Yellow Urine Appearance Clear Urine pH 7 (4.5-8.0) Urine Specific [place] 1.005 (1.005-1.035) Urine Protein 2+ (NEGATIVE) H Urine Glucose (UA) Negative (NEGATIVE) Urine Ketones Negative (NEGATIVE) Urine Blood Negative (NEGATIVE) Urine Nitrite Negative (NEGATIVE) Urine Bilirubin Negative (NEGATIVE) Urine Urobilinogen 4 MG/DL (0.0-1.0) H Urine Leukocyte Esterase 1+ (NEGATIVE) H Urine RBC 0-2 /HPF (0 - 2) Urine WBC 0-2 /HPF (0 - 2) Urine Squamous Epithelial Cells Few /LPF (NONE/OCC) Urine Bacteria None /HPF (NONE) EKG Diagnostic Results Rate: normal Rhythm: NSR ST Segments: no acute changes Rhythm Strip Diag. Results EP Interpretation: yes Rate: 70's Rhythm: NSR, no PVC's, no ectopy CT/MRI/US Diagnostic Results CT/MRI/US Diagnostic Results : Imaging Test Ordered: CT head Impression No acute findings. See electronic medical record for official report. Last Vital Signs Date Time Temp Pulse Resp B/P (MAP) Pulse Ox O2 Delivery O2 Flow Rate FiO2 01/20/19 18:43 98.1 78 16 95/46 100 Room Air Status: improved Disposition: ADMITTED INPATIENT Condition: Serious Referrals: [facility],REFERRING (PCP) Brittany Espinosa DO Jan 20, 2019 19:20
--- NOTE | 2019-01-20 19:45 | NUR ---
Pt brought up to tele floor room 205-2 by RN, and radio electronics technician. bedside report given to JALYN Clemons. VSS. belonging signed off.
--- NOTE | 2019-01-20 19:49 | NUR ---
NURSE NOTES: Received pt from ER nurse, JALYN Ferguson. Pt transported via gurney. night monitor placed on patient, vitals taken. Pt is awake and resting in bed, fatigued but in no acute distress, breathing even unlabored on room air. Seizure precaution pads placed on side rails. Suction equipment set up in room. Iv site intact. Oriented pt to room and unit. Bed locked in lowest position, call light within reach. Will contact Dr. Lino for admission orders.
[2019-01-20 20:00] VITALS: BP 103/56
--- NOTE | 2019-01-20 22:57 | NUR ---
NURSE NOTES: Pt had a seizure at 2245, ended at 2248. Pt alert and verbal after episode. Placed pt on 2 L nasal cannula, side lying position. 2mg Ativan given once as ordered. Neuro assessment pt ao x4. Left message notifying Dr. Lino.
[2019-01-20] MEDS ORDERED: Albuterol ud Inhalation HHN SCH (23:00)
--- NOTE | 2019-01-20 23:00 | NUR ---
NURSE NOTES: Left a message for Dr. Mckinley seeking prn seizure medication for the patient. Will follow up.
[2019-01-21] VITALS: BP 131/70
--- NOTE | 2019-01-21 00:10 | NUR ---
NURSE NOTES: Left a message for Dr. Mckinley seeking prn seizure medication for the patient.
[2019-01-21] MEDS: HYDROcodone/Acetamin 5/325 tab ORAL PRN ×2 (01:10→09:03)
--- NOTE | 2019-01-21 02:28 | NUR ---
NURSE NOTES: Received order for ativan prn seizure. Will carry out order.
[2019-01-21] MEDS ORDERED: LORazepam Inj 2mg/ml 1ml IV PRN (03:00)
[2019-01-21] MEDS ORDERED: LORazepam Inj 2mg/ml 1ml IV ONE (03:15)
[2019-01-21 04:00] VITALS: BP 112/60
--- NOTE | 2019-01-21 04:35 | NUR ---
NURSE NOTES: Pt had a seizure at 0415 for 1 minute. Administered Ativan 1mg prn as ordered for seizure. Pt is awake and resting in bed. neuro assessment a0 x4. Vitals wnL. Pt placed on side via pillow. pt on 2 L nasal cannula. Left a message for Dr. Mckinley notifying him.
[2019-01-21 06:25] LABS: BASOPHILS % (AUTO) 1.4 % (0.0-2.0); HEMATOCRIT 39.8 % (37.0-47.0); HEMOGLOBIN 13.1 G/DL (12.0-16.0); LYMPHOCYTES % (AUTO) 37.8 % (20.0-45.0); MEAN CORPUSCULAR VOLUME 95 FL (80-99); MONOCYTES % (AUTO) 4.1 % (1.0-10.0); NEUTROPHILS % (AUTO) 53.7 % (45.0-75.0); PLATELET COUNT 237 K/UL (150-450); RED BLOOD COUNT 4.17 M/UL (4.20-5.40); RED CELL DISTRIBUTION WIDTH 12.4 % (11.6-14.8); WHITE BLOOD COUNT 9.1 K/UL (4.8-10.8)
[2019-01-21 06:38] LABS: ALANINE AMINOTRANSFERASE 8 U/L (12-78); ALBUMIN 3.1 G/DL (3.4-5.0); ALBUMIN/GLOBULIN RATIO 0.7 (1.0-2.7); ALKALINE PHOSPHATASE 111 U/L (46-116); ANION GAP 3 mmol/L (5-15); ASPARTATE AMINO TRANSFERASE 10 U/L (15-37); BILIRUBIN,TOTAL 0.5 MG/DL (0.2-1.0); BLOOD UREA NITROGEN 10 mg/dL (7-18); CALCIUM 9.1 MG/DL (8.5-10.1); CARBON DIOXIDE 32 MMOL/L (21-32); CHLORIDE 100 MMOL/L (98-107); CREATININE 0.6 MG/DL (0.55-1.30); POTASSIUM 3.6 MMOL/L (3.5-5.1); SODIUM 135 MMOL/L (136-145)
--- NOTE | 2019-01-21 07:00 | NUR ---
RESPIRATORY NOTE: Unable to give 0700 breathing treatment due albuterol is not available in the pyxis. JALYN williamson.
--- NOTE | 2019-01-21 08:02 | NUR ---
HAND-OFF: Report given to JALYN Reed. Endorsed plan of care.
[2019-01-21 08:06] VITALS: BP 121/70
--- NOTE | 2019-01-21 08:35 | NUR ---
CASE MANAGEMENT:REVIEW 53 YR OLD FEMALE FROM HOME CC: MULTIPLE SEIZURES SI: UNCONTROLLED SEIZURE 97.8 82 27 95/46 100% ON RA GLUCOSE+281 IS:IV ATIVAN CT HEAD NEURO CHECKS : TO TELEMETRY IS: KEPPRA 1,000MG PO Q12 NORVASC PO QD HCTZ PO QD ALBUTEROL HHN Q4HRS RTC IVF@60/HR COGENTIN PO QD IV ATIVAN Q2HRS PRN Addendum: 01/21/19 at 0854 by TRACI PETTY LVN LVN INTERQUAL CRITERIA MET
[2019-01-21] MEDS: Albuterol ud Inhalation HHN SCH ×2 (09:00→10:38)
[2019-01-21] MEDS ORDERED: Benztropine 1mg tab ORAL SCH (09:00)
[2019-01-21 09:04] VITALS: BP 121/70
--- NOTE | 2019-01-21 10:31 | NUR ---
*-* NO INSURANCE INFORMATION IN THE BAR UNABLE TO SEND CLINICALS OR REVIEWS *-*
--- NOTE | 2019-01-21 10:35 | NUR ---
RESPIRATORY NOTE: Talked to pharmacy Saima said to just non-admin the 0900 on emar due to its too close to the next dose. JALYN Reed aware.
[2019-01-21] MEDS ORDERED: LORazepam Inj 2mg/ml 1ml IM SCH (11:28)
[2019-01-21] MEDS ORDERED: DiphenhydrAMINE 50mg/ml Inj IM SCH (11:28)
--- NOTE | 2019-01-21 12:19 | Pulmonology Progress Note ---
Assessment/Plan Assessment/Plan Pulmonary Consultation HPI This patient is a 53 year old woman with a history of previous CVA/TIA, Seizures , Asthma, Diabetes. She is on Keppra for her seizure disorder. She has had recurrent seizures for the past 4 days. She states she is taking her Keppra. She denies recent illness. She denies fever or chills. She has nausea or vomiting. She has no other complaints. Asthma is currently stable, no cough or shortness of breath. Allergies: GUAIFENESIN IBUPROFEN PENICILLINS PHENYTOIN Past Medical History: DM, HTN, CVA/TIA, seizures Social History: Denies: smoking, alcohol use, drug use All Other Systems: negative except mentioned in HPI Physical Exam Vital Signs Noted Date Time Temp Pulse Resp B/P (MAP) Pulse Ox O2 Delivery O2 Flow Rate FiO2 01/20/19 16:36 97.9 82 27 128/76 (93) 100 Room Air General Appearance: no apparent distress, alert, GCS 15, non-toxic, comfortable Head: normocephalic, atraumatic Eyes: bilateral eye normal inspection, bilateral eye PERRL ENT: hearing grossly normal, normal pharynx, moist mm Neck: full range of motion, supple/symm/no masses Respiratory: chest non-tender, lungs clear, normal breath sounds Cardiovascular : regular rate, rhythm, no edema, HS1, HS2 normal Gastrointestinal: normal bowel sounds, non tender, soft, non-distended, no guarding, no rebound Rectal: deferred Musculoskeletal: back normal, normal range of motion, non-tender Neurologic: alert, oriented x3, responsive, other - slow speech with mild facial droop, moving all limbs, no seizures Impression: Recurrent seizures Previous CVA/TIA Seizures Asthma Diabetes Plan PHOTOGRAPHY PROFESSOR medications Seizure precautions Keppra Accuchecks HHN/O2 PRN Monitor labs PPX Laboratory Tests Test 01/20/19 17:00 01/20/19 18:20 White Blood Count 10.3 K/UL (4.8-10.8) Red Blood Count 4.04 M/UL (4.20-5.40) L Hemoglobin 12.8 G/DL (12.0-16.0) Hematocrit 37.8 % (37.0-47.0) Mean Corpuscular Volume 94 FL (80-99) Mean Corpuscular Hemoglobin 31.6 PG (27.0-31.0) H Mean Corpuscular Hemoglobin Concent 33.8 G/DL (32.0-36.0) Red Cell Distribution Width 11.4 % (11.6-14.8) L Platelet Count 241 K/UL (150-450) Mean Platelet Volume 7.0 FL (6.5-10.1) Neutrophils (%) (Auto) 55.5 % (45.0-75.0) Lymphocytes (%) (Auto) 35.6 % (20.0-45.0) Monocytes (%) (Auto) 5.2 % (1.0-10.0) Eosinophils (%) (Auto) 2.3 % (0.0-3.0) Basophils (%) (Auto) 1.3 % (0.0-2.0) Prothrombin Time 9.7 SEC (9.30-11.50) Prothrombin Time INR 0.9 (0.9-1.1) PTT 23 SEC (23-33) Sodium Level 136 MMOL/L (136-145) Potassium Level 4.0 MMOL/L (3.5-5.1) Chloride Level 99 MMOL/L (98-107) Carbon Dioxide Level 30 MMOL/L (21-32) Anion Gap 8 mmol/L (5-15) Blood Urea Nitrogen 11 mg/dL (7-18) Creatinine 0.7 MG/DL (0.55-1.30) Estimate Glomerular Filtration Rate > 60 mL/min (>60) Glucose Level 281 MG/DL (74-106) H Calcium Level 9.1 MG/DL (8.5-10.1) Total Bilirubin 0.5 MG/DL (0.2-1.0) Aspartate Amino Transferase (AST) 19 U/L (15-37) Alanine Aminotransferase (ALT) 9 U/L (12-78) L Alkaline Phosphatase 113 U/L (46-116) Troponin I 0.000 ng/mL (0.000-0.056) Total Protein 7.6 G/DL (6.4-8.2) Albumin 3.3 G/DL (3.4-5.0) L Globulin 4.3 g/dL Albumin/Globulin Ratio 0.8 (1.0-2.7) L Urine Color Yellow Urine Appearance Clear Urine pH 7 (4.5-8.0) Urine Specific [place] 1.005 (1.005-1.035) Urine Protein 2+ (NEGATIVE) H Urine Glucose (UA) Negative (NEGATIVE) Urine Ketones Negative (NEGATIVE) Urine Blood Negative (NEGATIVE) Urine Nitrite Negative (NEGATIVE) Urine Bilirubin Negative (NEGATIVE) Urine Urobilinogen 4 MG/DL (0.0-1.0) H Urine Leukocyte Esterase 1+ (NEGATIVE) H Urine RBC 0-2 /HPF (0 - 2) Urine WBC 0-2 /HPF (0 - 2) Urine Squamous Epithelial Cells Few /LPF (NONE/OCC) Urine Bacteria None /HPF (NONE) EKG: Rate: normal Rhythm: NSR ST Segments: no acute changes CT Head: No acute findings Subjective ROS Limited/Unobtainable: No Allergies: Coded Allergies: GUAIFENESIN (Verified Allergy, Unknown, 08/31/15) IBUPROFEN (Verified Allergy, Unknown, Hives, 10/26/18) TOLERATED ASPIRIN PENICILLINS (Verified Allergy, Unknown, 08/31/15) PHENYTOIN (Verified Allergy, Unknown, 08/31/15) Objective Last 24 Hour Vital Signs Date Time Temp Pulse Resp B/P (MAP) Pulse Ox O2 Delivery O2 Flow Rate FiO2 01/21/19 10:48 70 20 99 Room Air 21 01/21/19 10:38 64 18 99 Room Air 21 01/21/19 10:38 64 18 100 Room Air 01/21/19 10:14 Nasal Cannula 2.0 01/21/19 09:33 97.5 01/21/19 09:04 99 121/70 01/21/19 08:06 97.5 99 18 121/70 (87) 97 01/21/19 04:00 98.1 66 18 112/60 (77) 97 01/21/19 04:00 66 01/21/19 00:00 98.2 77 18 131/70 (90) 97 01/21/19 00:00 77 01/20/19 21:30 Room Air 01/20/19 20:00 81 01/20/19 20:00 97.7 81 18 103/56 (72) 98 01/20/19 19:45 98.3 80 18 102/50 98 Room Air 01/20/19 18:43 98.1 78 16 95/46 100 Room Air 01/20/19 16:45 82 27 Room Air 01/20/19 16:45 98.3 75 28 113/62 96 Room Air 01/20/19 16:36 97.9 82 27 128/76 (93) 100 Room Air Intake and Output 01/20/19 01/21/19 19:00 07:00 Intake Total 0 ml Balance 0 ml Intake Oral 0 ml # Voids 2 Laboratory Tests 01/20/19 17:00: White Blood Count 10.3, Red Blood Count 4.04L, Hemoglobin 12.8, Hematocrit 37.8 , Mean Corpuscular Volume 94, Mean Corpuscular Hemoglobin 31.6H, Mean Corpuscular Hemoglobin Concent 33.8, Red Cell Distribution Width 11.4L, Platelet Count 241, Mean Platelet Volume 7.0, Neutrophils (%) (Auto) 55.5, Lymphocytes (%) (Auto) 35.6, Monocytes (%) (Auto) 5.2, Eosinophils (%) (Auto) 2.3, Basophils (%) (Auto) 1.3, Prothrombin Time 9.7, Prothromb Time International Ratio 0.9, Activated Partial Thromboplast Time 23, Sodium Level 136, Potassium Level 4.0, Chloride Level 99, Carbon Dioxide Level 30, Anion Gap 8, Blood Urea Nitrogen 11, Creatinine 0.7, Estimat Glomerular Filtration Rate > 60, Glucose Level 281H, Calcium Level 9.1, Total Bilirubin 0.5, Aspartate Amino Transf (AST/SGOT) 19, Alanine Aminotransferase (ALT/SGPT) 9L, Alkaline Phosphatase 113, Troponin I 0.000, Total Protein 7.6, Albumin 3.3L, Globulin 4.3 , Albumin/Globulin Ratio 0.8L 01/20/19 18:20: Urine Color Yellow, Urine Appearance Clear, Urine pH 7, Urine Specific [place] 1.005, Urine Protein 2+H, Urine Glucose (UA) Negative, Urine Ketones Negative, Urine Blood Negative, Urine Nitrite Negative, Urine Bilirubin Negative, Urine Urobilinogen 4H, Urine Leukocyte Esterase 1+H, Urine RBC 0-2, Urine WBC 0-2, Urine Squamous Epithelial Cells Few, Urine Bacteria None 01/21/19 05:25: White Blood Count 9.1, Red Blood Count 4.17L, Hemoglobin 13.1, Hematocrit 39.8, Mean Corpuscular Volume 95, Mean Corpuscular Hemoglobin 31.5H, Mean Corpuscular Hemoglobin Concent 33.0, Red Cell Distribution Width 12.4, Platelet Count 237, Mean Platelet Volume 6.8, Neutrophils (%) (Auto) 53.7, Lymphocytes (%) (Auto) 37.8, Monocytes (%) (Auto) 4.1, Eosinophils (%) (Auto) 3.0, Basophils (%) (Auto ) 1.4, Sodium Level 135L, Potassium Level 3.6, Chloride Level 100, Carbon Dioxide Level 32, Anion Gap 3L, Blood Urea Nitrogen 10, Creatinine 0.6, Estimat Glomerular Filtration Rate > 60, Glucose Level 187H, Calcium Level 9.1, Total Bilirubin 0.5, Aspartate Amino Transf (AST/SGOT) 10L, Alanine Aminotransferase ( ALT/SGPT) 8L, Alkaline Phosphatase 111, Total Protein 7.3, Albumin 3.1L, Globulin 4.2, Albumin/Globulin Ratio 0.7L Current Medications Medications (Trade) Dose Ordered Sig/Cecil Route PRN Reason Start Time Stop Time Status Last Admin Dose Admin Acetaminophen/ Hydrocodone Bitart ([place] 5/325) 1 tab Q6H PRN ORAL PAIN 4-10 01/20/19 21:45 01/27/19 21:44 01/21/19 09:03 Albuterol Sulfate (Proventil) 2.5 mg Q4HRT HHN 01/21/19 09:00 01/25/19 22:59 01/21/19 10:38 Amlodipine Besylate (Norvasc) 5 mg DAILY ORAL 01/21/19 09:00 02/20/19 08:59 01/21/19 09:04 Benztropine Mesylate (Cogentin) 1 mg DAILY ORAL 01/21/19 09:00 02/20/19 08:59 01/21/19 09:03 Diphenhydramine HCl (Benadryl) 25 mg ONCE IM 01/21/19 11:28 01/21/19 12:30 01/21/19 11:37 Heparin Sodium (Porcine) (Heparin 5000 units/ml) 5,000 units EVERY 12 HOURS SUBQ 01/21/19 21:00 02/20/19 20:59 Hydrochlorothiazide (Hydrodiuril) 25 mg DAILY ORAL 01/21/19 09:00 02/20/19 08:59 01/21/19 09:03 Levetiracetam (Keppra) 1,000 mg Q12HR ORAL 01/20/19 21:00 02/19/19 20:59 01/21/19 09:04 Lorazepam (Ativan 2mg/ml 1ml) 1 mg Q2H PRN IV For Seizures 01/21/19 03:00 01/28/19 02:59 01/21/19 04:22 Lorazepam (Ativan 2mg/ml 1ml) 2 mg ONCE IM 01/21/19 11:28 01/21/19 12:30 01/21/19 11:37 Ondansetron HCl (Zofran) 4 mg Q6H PRN IVP Nausea & Vomiting 01/20/19 21:45 02/19/19 21:44 Sodium Chloride 1,000 ml @ 60 mls/hr [id number] IV 01/20/19 21:30 02/19/19 21:29 01/20/19 22:14 Narciso Patel MD Jan 21, 2019 12:19
--- NOTE | 2019-01-21 13:23 | Cardiology Report ---
APPROVED REPORT EKG Measurement Heart [id number] Normal sinus rhythm Normal ECG
--- NOTE | 2019-01-21 14:54 | NUR ---
Patient requested to sign AMA at 9:20am. Called Dr. Montez x 2 about AMA. Patient started screaming and crying. Patient removed records clerk and IV access. 10:15 am- Security was called. Nursing bookkeepers supervisor Aylin and Appliance Service Technician Charlotte was made aware. Charge nurse Dk is aware. Dr. Wood was notified by Dr. Lino. RN called Dr. Wood at 11:14am and received orders for medications- Ativan 2mg IM INJ x 1 and Benadryl 25 mg IM INJ x 1. Notified 11:57am that mediation was not effective. Patient is still agitated and yelling. Patient made attempts to leave. Patient asked when is the doctor arriving soon. In addition, RN asked at NOON if patient should be placed in restraints. Dr. Wood asked to contact Neurology. The RN called Dr. Mckinley's emergency line x 2. The RN called Dr. Lino's emergency line about patient refused CXR, removed IV line, and refused medications, refused accucheck, and refused records clerk. Patient was disruptive on unit. Visitors and other units were stating complaints about noise and asked What is going on? Patient was cursing as security officers. Patient threw water basing and hospital supplies at health staff. Multiple health staff made multiple attempts to calm patient. Dr. Wood was notified about Dr. Mckinley had no call back and patient's noncompliance with staying. Charge nurse and RN asked Dr. Wood about ETA. Dr. Wood states she will come as soon as possible. 12:15 - Aylin, nursing bookkeepers supervisor notified Dr. Lino about patient leaving AMA. Patient signed AMA form at 12:28 pm. Patient had no IV access, and records clerk was removed. Patient belonging checklist was signed. Patient received her medications from pharmacy. Patient left at 12:30pm. Patient stated she is taking a cab to her house. 12:33pm Dr. Wood states to put patient on restraints. Notified Dr. Wood that patient left AMA @1230 PM.
[2019-01-21] MEDS ORDERED: Heparin 5000 units/ml inj SUBQ SCH (21:00)
--- NOTE | 2019-01-22 01:30 | History and Physical Report ---
DATE OF ADMISSION: 01/20/2019 The patient discharged as H and P since the patient has left against medical advice before I could see the patient. The patient is now admitted for recurrent seizures and was admitted for seizure control. The patient is also a psychiatric patient. I have consulted Dr. Wood, Dr. Mckinley, and Dr. Zepeda. However, the patient was agitated and wanted to leave, did not want to stay and nursing correctional case records supervisor said the patient confirmed AMA, so the patient left AMA, so I could not see the patient since the patient left AMA a couple hours after being admitted to the floor. Again, discharged as H and P since the patient left before I could examine her. The patient was not stable for discharge due to recurrent seizures. Josefa Lino M.D. DR: SHANTEL JOB#: [id number] CC:
--- NOTE | 2019-01-22 15:00 | Discharge Summary ---
Discharge Summary Discharge Summary _ DATE OF ADMISSION: 01/20/2019 DATE OF DISCHARGE: 01/21/2019 CONSULTANTS: Dr. Narciso Patel BRIEF HOSPITAL COURSE: Patient is a 53-year-old female, with history of CVA and seizure on Keppra, presented to ED due to recurrent seizures for the past sever days. Patient was recently seen at an emergency department for the same reason, where she was given Keppra orally and was discharged home. She continued to have breakthrough seizures. She denied recent illness. Denied fever or chills. She had nausea and vomiting. On evaluation at the ED, vital signs were stable. She was given IV Ativan. Blood work was stable. Urinalyses showed +1 leukocyte esterase, negative nitrite, 0-2 WBC. EKG was in normal sinus rhythm. CT of the head did not show any acute findings. She was noted with Keppra. She was admitted due to failure of outpatient treatment for seizure. She was admitted to monitored floor. She was placed on seizure precautions. She was given IV hydration. She was given amlodipine and hydrochlorothiazide for blood pressure. Neurologist and psychiatrist were consulted. Full treatment was not carried out as patient left against medical advise. FINAL DIAGNOSES: Seizure disorder with breakthrough seizure Failed outpatient therapy Noncompliance since patient signed out AGAINST MEDICAL ADVICE DISPOSITION: Patient left against medical advise. I have been assigned to complete a discharge summary on this account, I was not involved with the patient's management.--JOHN Botello Jacqueline Robles NP Jan 22, 2019 15:00
--- NOTE | 2019-01-23 09:30 | NUR ---
CASE MANAGEMENT: CM review and clinical information (face sheet/ ER MD notes/ H&P/DC summary) faxed to [facility] @ [phone] and SEAN PARRY @ [phone]. T#[id number]
== END 2019-01-21 12:28 | disposition left against medical advice (07) | DRG 53 ==
LOC: EMR 17:20 → 2E 18:41 → EDBEDREQ 19:18
DX: G40.909 Epilepsy, unspecified, not intractable, without status epilepticus (principal); Z91.19 Patient's noncompliance with other medical treatment and regimen; Z86.73 Personal history of transient ischemic attack (TIA), and cerebral infarction without residual deficits; J45.909 Unspecified asthma, uncomplicated; E11.9 Type 2 diabetes mellitus without complications; Z88.6 Allergy status to analgesic agent; Z88.0 Allergy status to penicillin; Z88.8 Allergy status to other drugs, medicaments and biological substances
CPT/HCPCS: 36415; 70450; 80053; 80299; 81003; 82962; 84484; 85025; 85610; 85730; 93005; 94640; 94664; 96374; 99285

== ENCOUNTER 2019-01-26 16:51 | Emergency (ER) | payer MEDICAID ==
[~2019-01-26] VITALS: Ht 170.2 cm; Wt 68.0 kg
[~2019-01-26 16:51] MED LIST changes: +AMLODIPINE BESYL5 MG ORAL; +ASPIRIN EC325 MG ORAL; +BENZTROPINE ME0.5 MG PO; +GLIPIZIDE5 G1 MC; +HYDROCHLOROTHIA25 MG ORAL; +KEPPRA1000 MG ORAL; +NITROSTAT0.4 M2 SL
[2019-01-26] MEDS ORDERED: QUETIAPINE FUMA25 MG ORAL (17:04)
[2019-01-26 17:10] VITALS: BP 133/88
--- NOTE | 2019-01-26 17:10 | NUR ---
ED Nurse Note: pt walked in to ED due to abdominal pain aw n/v for last 3 days. pt denies eating raw food or starting any new drugs. AAO x4. respirations even and non-labored noted. skin warm to touch. no open wound noted. will wait for the further order.
[2019-01-26] MEDS ORDERED: levETIRAcetam 1,000mg/NS100ml 100 ML IVPB ONE (17:30)
--- NOTE | 2019-01-26 17:42 | NUR ---
ED Nurse Note: pt went to CT.
[2019-01-26 17:48] LABS: APPEARANCE,URINE CLEAR; BILIRUBIN, URINE 1+ (NEGATIVE); GLUCOSE, URINE (UA) NEGATIVE (NEGATIVE); KETONES,URINE 1+ (NEGATIVE); LEUKOCYTE ESTERASE ,URINE 1+ (NEGATIVE); NITRITE,URINE NEGATIVE (NEGATIVE); PH,URINE 6 (4.5-8.0); PROTEIN,URINE 3+ (NEGATIVE); UROBILINOGEN,URINE 8 MG/DL (0.0-1.0)
[2019-01-26 17:49] LABS: COLOR,URINE AMBER
--- NOTE | 2019-01-26 18:00 | NUR ---
ED Nurse Note: multiple RNs attempted to started IV access. lab called for blood draw.
--- NOTE | 2019-01-26 18:26 | Emergency Room Report ---
History of Present Illness General Chief Complaint: Abdominal Pain Source: Patient Present Illness HPI Patient presents emergency department today complaint acute onset abdominal pain. Patient states that she has been feeling well with abdominal pain associate nausea vomiting diarrhea. Patient also was recently admitted to the hospital for seizures and she signed out AGAINST MEDICAL ADVICE. Patient states that she still having seizures occasionally. She denies any fever chest pain shortness of breath. Patient appears to have a psychiatric history as well. No other complaints are noted. Symptoms noted to be moderate to severe. No other modifying factors. No other associated signs and symptoms. No other complaints were noted. Allergies: Coded Allergies: GUAIFENESIN (Verified Allergy, Unknown, 08/31/15) IBUPROFEN (Verified Allergy, Unknown, Hives, 10/26/18) TOLERATED ASPIRIN PENICILLINS (Verified Allergy, Unknown, 08/31/15) PHENYTOIN (Verified Allergy, Unknown, 08/31/15) Patient History Past Medical History: DM, HTN, CAD, seizures, psych hx Past Surgical History: none Pertinent Family History: none Social History: Denies: smoking, alcohol use, drug use Reviewed Nursing Documentation: PMH: Agreed; PSxH: Agreed Nursing Documentation-PMH Past Medical History: No History, Except For Hx Cardiac Problems: Yes Hx Hypertension: Yes Hx Diabetes: Yes Hx Cancer: No Hx Gastrointestinal Problems: No Hx Cerebrovascular Accident: Yes Hx Seizures: Yes Review of Systems All Other Systems: negative except mentioned in HPI Physical Exam Vital Signs Date Time Temp Pulse Resp B/P (MAP) Pulse Ox O2 Delivery O2 Flow Rate FiO2 01/26/19 17:00 97.3 88 16 133/88 (103) 95 Room Air Sp02 EP Interpretation: reviewed, normal General Appearance: normal inspection, well appearing, no apparent distress, alert Head: atraumatic Eyes: bilateral eye normal inspection ENT: normal ENT inspection, hearing grossly normal, normal voice Neck: normal inspection, full range of motion, supple, no bony tend Respiratory: normal inspection, lungs clear, normal breath sounds, no respiratory distress, no retraction, no wheezing Cardiovascular #1: regular rate, rhythm, no edema Gastrointestinal: normal inspection, normal bowel sounds, soft, no guarding, no hernia, tenderness - Diffusely Genitourinary: no CVA tenderness Musculoskeletal: normal inspection, back normal, normal range of motion Neurologic: normal inspection, alert, responsive, speech normal Psychiatric: normal inspection, judgement/insight normal, mood/affect normal Medical Decision Making Diagnostic Impression: Primary Impression: Diverticulitis Additional Impression: Seizure ER Course Patient presents emergency department today complaint of acute onset abdominal pain associate nausea vomiting diarrhea. Differential considerations include infectious process, electrolyte abnormality, diverticulitis. Patient also has a history of seizures and states that she occasionally has seizures. Differential considerations include breakthrough seizures. Patient is at baseline has not had any seizures today. Given the severity of the patient's presentation I felt this is a highly complex patient. This patient required extensive workup. Patient's laboratory work-up was not impressive. CT scan abdomen pelvis showed evidence of diverticulitis which would appear to be mild. Patient was given oral antibiotics here and antiemetics and feels much better. Therefore I felt the patient can be managed as an outpatient. Patient was given a prescription. Patient is advised to follow up with primary doctor in 2-3 days and return the emergency room for any worsening symptoms and as needed. Labs Test 01/26/19 17:05 01/26/19 19:30 Urine Color Leigh Urine Appearance Clear Urine pH 6 (4.5-8.0) Urine Specific Philipp 1.015 (1.005-1.035) Urine Protein 3+ (NEGATIVE) Urine Glucose (UA) Negative (NEGATIVE) Urine Ketones 1+ (NEGATIVE) Urine Blood Negative (NEGATIVE) Urine Nitrite Negative (NEGATIVE) Urine Bilirubin 1+ (NEGATIVE) Urine Ictotest Negative (NEGATIVE) Urine Urobilinogen 8 MG/DL (0.0-1.0) Urine Leukocyte Esterase 1+ (NEGATIVE) Urine RBC 0-2 /HPF (0 - 2) Urine WBC 2-4 /HPF (0 - 2) Urine Squamous Epithelial Cells Few /LPF (NONE/OCC) Urine Bacteria Few /HPF (NONE) White Blood Count 8.5 K/UL (4.8-10.8) Red Blood Count 4.23 M/UL (4.20-5.40) Hemoglobin 13.5 G/DL (12.0-16.0) Hematocrit 38.4 % (37.0-47.0) Mean Corpuscular Volume 91 FL (80-99) Mean Corpuscular Hemoglobin 31.8 PG (27.0-31.0) Mean Corpuscular Hemoglobin Concent 35.1 G/DL (32.0-36.0) Red Cell Distribution Width 10.9 % (11.6-14.8) Platelet Count 259 K/UL (150-450) Mean Platelet Volume 7.1 FL (6.5-10.1) Neutrophils (%) (Auto) 38.9 % (45.0-75.0) Lymphocytes (%) (Auto) 49.2 % (20.0-45.0) Monocytes (%) (Auto) 7.3 % (1.0-10.0) Eosinophils (%) (Auto) 2.7 % (0.0-3.0) Basophils (%) (Auto) 2.0 % (0.0-2.0) Sodium Level 139 MMOL/L (136-145) Potassium Level 3.4 MMOL/L (3.5-5.1) Chloride Level 102 MMOL/L (98-107) Carbon Dioxide Level 27 MMOL/L (21-32) Anion Gap 10 mmol/L (5-15) Blood Urea Nitrogen 18 mg/dL (7-18) Creatinine 0.6 MG/DL (0.55-1.30) Estimat Glomerular Filtration Rate > 60 mL/min (>60) Glucose Level 194 MG/DL (74-106) Calcium Level 9.3 MG/DL (8.5-10.1) Total Bilirubin 0.4 MG/DL (0.2-1.0) Aspartate Amino Transf (AST/SGOT) 9 U/L (15-37) Alanine Aminotransferase (ALT/SGPT) 12 U/L (12-78) Alkaline Phosphatase 126 U/L (46-116) Troponin I 0.000 ng/mL (0.000-0.056) Total Protein 7.8 G/DL (6.4-8.2) Albumin 3.4 G/DL (3.4-5.0) Globulin 4.4 g/dL Albumin/Globulin Ratio 0.8 (1.0-2.7) Lipase 89 U/L (73-393) EKG Diagnostic Results Rate: normal Rhythm: NSR ST Segments: no acute changes Rhythm Strip Diag. Results EP Interpretation: yes Rate: 80 Rhythm: NSR, no PVC's, no ectopy Last Vital Signs Date Time Temp Pulse Resp B/P (MAP) Pulse Ox O2 Delivery O2 Flow Rate FiO2 01/26/19 17:00 97.3 88 16 133/88 (103) 95 Room Air Status: improved Disposition: HOME, SELF-CARE Condition: Stable Scripts Docusate Sodium* (COLACE*) 100 Mg Capsule 100 MG ORAL THREE TIMES A DAY for 10 Days, CAP Prov: Mitchel Elizabeth MD 01/26/19 Ondansetron (Zofran) 4 Mg Tablet 4 MG ORAL Q6H PRN for Nausea & Vomiting, #15 TAB 0 Refills Prov: Mitchel Elizabeth MD 01/26/19 Ondansetron (Zofran) 4 Mg Tablet 4 MG ORAL Q6H PRN for Nausea & Vomiting, #20 TAB 0 Refills Prov: Mitchel Elizabeth MD 01/26/19 Metronidazole* (FLAGYL*) 500 Mg Tablet 500 MG ORAL BID for 7 Days, TAB Prov: Mitchel Elizabeth MD 01/26/19 Ciprofloxacin Hcl* (CIPROFLOXACIN HCL*) 500 Mg Tablet 500 MG ORAL Q12H, #14 TAB 0 Refills Prov: Mitchel Elizabeth MD 01/26/19 Referrals: [facility],REFERRING (PCP) Mitchel Elizabeth MD Jan 26, 2019 18:26
--- NOTE | 2019-01-26 19:06 | NUR ---
ED Nurse Note: labatory personnal at the bed side for blood draw.
--- NOTE | 2019-01-26 19:08 | NUR ---
HAND-OFF: Report given to Han Stock Rn. endorsing pending IV access and blood draw.
--- NOTE | 2019-01-26 19:10 | NUR ---
ED Nurse Note: received patient from nicholas bagley. patient laying in bed with nad. lab at bedside for blood draw.
[2019-01-26 19:42] LABS: EOSINOPHILS % (AUTO) 2.7 % (0.0-3.0); HEMATOCRIT 38.4 % (37.0-47.0); HEMOGLOBIN 13.5 G/DL (12.0-16.0); LYMPHOCYTES % (AUTO) 49.2 % (20.0-45.0); MEAN CORPUSCULAR VOLUME 91 FL (80-99); MONOCYTES % (AUTO) 7.3 % (1.0-10.0); NEUTROPHILS % (AUTO) 38.9 % (45.0-75.0); PLATELET COUNT 259 K/UL (150-450); RED BLOOD COUNT 4.23 M/UL (4.20-5.40); RED CELL DISTRIBUTION WIDTH 10.9 % (11.6-14.8); WHITE BLOOD COUNT 8.5 K/UL (4.8-10.8)
[2019-01-26] MEDS ORDERED: Ondansetron ODT 8mg tab ORAL ONE (19:45)
[2019-01-26] MEDS ORDERED: Levofloxacin 500mg tab ORAL ONE (19:45)
[2019-01-26] MEDS ORDERED: metroNIDAZOLE 500mg tab ORAL ONE (19:45)
[2019-01-26 19:59] LABS: ANION GAP 10 mmol/L (5-15); BLOOD UREA NITROGEN 18 mg/dL (7-18); CALCIUM 9.3 MG/DL (8.5-10.1); CARBON DIOXIDE 27 MMOL/L (21-32); CHLORIDE 102 MMOL/L (98-107); CREATININE 0.6 MG/DL (0.55-1.30); POTASSIUM 3.4 MMOL/L (3.5-5.1); SODIUM 139 MMOL/L (136-145)
[2019-01-26 20:05] LABS: ALANINE AMINOTRANSFERASE 12 U/L (12-78); ALBUMIN 3.4 G/DL (3.4-5.0); ALBUMIN/GLOBULIN RATIO 0.8 (1.0-2.7); ALKALINE PHOSPHATASE 126 U/L (46-116); ASPARTATE AMINO TRANSFERASE 9 U/L (15-37); BILIRUBIN,TOTAL 0.4 MG/DL (0.2-1.0)
[2019-01-26] MEDS ORDERED: CIPROFLOXACIN500 M2 ORAL (20:18)
[2019-01-26] MEDS ORDERED: METRONIDAZOLE500 MG ORAL (20:18)
[2019-01-26] MEDS ORDERED: ZOFRAN4 MG ORAL (20:18)
[2019-01-26] MEDS ORDERED: COLACE100 MG ORAL (20:24)
[2019-01-26 20:28] VITALS: BP 129/68
[2019-01-26 20:50] VITALS: BP 129/68
--- NOTE | 2019-01-26 20:50 | NUR ---
ER DISCHARGE NOTE: Patient is cleared to be discharged per ERMD, pt is aox4, on room air, with stable vital signs. pt was given dc and prescription instructions, pt was able to verbalize understanding, pt id band removed. pt is able to ambulate with steady gait. pt took all belongings. pt went home via taxi with voucher.
--- NOTE | 2019-01-27 10:10 | Diagnostic Imaging Report ---
Indication: Abdominal pain Technique: Continuous helical transaxial imaging of the abdomen and pelvis was obtained from the lung bases to the pubic symphysis. No intravenous contrast was administered. Coronal 2-D reformats were also obtained. Automatic Exposure Control was utilized. Total Dose length Product (DLP): 807.[address] Dose Index Volume (CTDIvol): 15.47 mGy Comparison: none Findings: The lung bases are clear. There is no nephrolithiasis or hydronephrosis. The aorta is mildly calcified. There is differential density of the gallbladder with dependent layering hyperdensity probably sludge. The appendix is normal. There are diverticula throughout the colon. In the posterior part of the cecum there is question of mild soft tissue stranding associated with some of the diverticula in this location. Query the possibility of mild diverticulitis. There is no free fluid or evidence of abscess. The uterus is noted. The bladder is nondistended. IMPRESSION: Query mild diverticulitis in the posterior aspect of the cecum. Normal appendix. Other incidental findings as above The CT scanner at [facility] is accredited by the [employer] and the scans are performed using dose optimization techniques as appropriate to a performed exam including Automatic Exposure control.
== END 2019-01-26 20:50 | disposition home or self-care (01) ==
LOC: EMR 17:57
DX: K57.92 Diverticulitis of intestine, part unspecified, without perforation or abscess without bleeding (principal); G40.909 Epilepsy, unspecified, not intractable, without status epilepticus; R11.2 Nausea with vomiting, unspecified; Z88.6 Allergy status to analgesic agent; Z88.0 Allergy status to penicillin; Z88.8 Allergy status to other drugs, medicaments and biological substances; I11.9 Hypertensive heart disease without heart failure; E11.9 Type 2 diabetes mellitus without complications; I25.10 Atherosclerotic heart disease of native coronary artery without angina pectoris; Z86.73 Personal history of transient ischemic attack (TIA), and cerebral infarction without residual deficits
CPT/HCPCS: 36415; 74176; 80053; 80299; 81003; 83690; 84484; 85025; 93005; 99284; Q0162

== ENCOUNTER 2020-01-04 15:20 | Emergency (ER) | payer MEDICAID ==
[~2020-01-04] VITALS: Ht 170.2 cm; Wt 117.9 kg
[~2020-01-04 15:20] MED LIST changes: +ABILIFY10 MG ORAL; +BENZTROPINE MESY1 MG ORAL; +CIPROFLOXACIN500 M2 ORAL; +COLACE100 MG ORAL; +LEVAQUIN500 MG ORAL; +LISINOPRIL5 MG ORAL; +METRONIDAZOLE500 MG ORAL; +PRAVACHOL20 MG ORAL; +QUETIAPINE FUMA25 MG ORAL; +RISPERDAL1 MG PO; +ZOFRAN4 MG ORAL
[2020-01-04 15:30] VITALS: BP 111/68
[2020-01-04] MEDS ORDERED: levETIRAcetam 1,000mg/NS100ml 100 ML IVPB ONE (15:30)
[2020-01-04] MEDS ORDERED: LORazepam Inj 2mg/ml 1ml IV ONE (15:30)
--- NOTE | 2020-01-04 15:39 | Emergency Room Report ---
History of Present Illness General Chief Complaint: Seizure Source: Patient Present Illness HPI Patient is a 54-year-old female past medical history of seizure disorder on Keppra as well as psychiatric disorder including bipolar and schizophrenia who presents to the ER status post seizure. Patient states that she had a seizure at the bus stop approximately 15 minutes ago. She complains of a headache. She does not know if she hit her head. Patient was here yesterday for recurrent seizure and was admitted. Patient states that she signed out AMA today because she thought she was going to be fine. She denies any fever or chills. She denies any chest pain or shortness of breath. She denies any abdominal pain nausea or vomiting. Patient states that her seizure was witnessed by hospital nurses because it is the best of right next to the emergency department but nobody brought her in their 40s unclear if patient actually had a seizure. As I do not believe that nurses would allow somebody who had a seizure to remain unconscious. She also is not postictal. Allergies: Coded Allergies: GUAIFENESIN (Verified Allergy, Unknown, 08/31/15) IBUPROFEN (Verified Allergy, Unknown, Hives, 10/26/18) TOLERATED ASPIRIN PENICILLINS (Verified Allergy, Unknown, 08/31/15) PHENYTOIN (Verified Allergy, Unknown, 08/31/15) COVID-19 Screening Contact w/high risk pt: No Experienced COVID-19 symptoms?: No COVID-19 Testing performed TRAIN CONDUCTOR: No Patient History Reviewed Nursing Documentation: PMH: Agreed; PSxH: Agreed Nursing Documentation-PMH Past Medical History: No History, Except For Hx Hypertension: Yes Hx Asthma: Yes Hx COPD: Yes Hx Diabetes: Yes Hx Cancer: No Hx Gastrointestinal Problems: No Hx Cerebrovascular Accident: Yes Hx Seizures: Yes Hx Weakness: Yes - Generalized Review of Systems All Other Systems: negative except mentioned in HPI Physical Exam Vital Signs Date Time Temp Pulse Resp B/P (MAP) Pulse Ox O2 Delivery O2 Flow Rate FiO2 01/04/20 15:23 97.3 112 22 108/60 (76) 98 Room Air Sp02 EP Interpretation: reviewed, normal General Appearance: no apparent distress, alert, GCS 15, non-toxic, other - Poorly groomed Head: normocephalic, atraumatic Eyes: bilateral eye normal inspection, bilateral eye PERRL ENT: hearing grossly normal, normal pharynx, no angioedema, other - Edentulous with slurred speech Neck: full range of motion, supple/symm/no masses Respiratory: chest non-tender, lungs clear, normal breath sounds, speaking full sentences Cardiovascular #1: normal capillary refill, tachycardia Gastrointestinal: normal bowel sounds, non tender, soft, non-distended, no guarding, no rebound Rectal: deferred Genitourinary: no CVA tenderness Musculoskeletal: normal range of motion, no calf tenderness Neurologic: wharf laborer III-XII nml as tested, oriented, distal neuro normal Psychiatric: no suicidal/homicidal ideation Skin: no rash Lymphatic: no adenopathy Medical Decision Making Diagnostic Impression: Primary Impression: Seizure ER Course Patient presents with reported seizure. Unclear if patient actually had seizure. Patient's vital signs are stable. I have loaded her with Keppra which she is supposed to be on. Patient was admitted yesterday and signed out AMA because she said that she felt fine. Patient had no seizure-like activity while in the emergency room. Her labs demonstrate no significant acute abnormalities. Due to patient's reported possible head trauma and headache I rescanned her head which demonstrated no acute intracranial pathology. I have refilled the patient's prescription for Keppra. After discussing risks and benefits of further diagnostics, treatment plans, as well as indications for and risks of admission, the patient is agreeable to being discharged home. I have explained that their evaluation and treatment in the emergency department today is an important step towards them achieving better health but that their evaluation today is not intended to replace further evaluation and treatment by a physician in their local clinic. I have explained that while the current findings suggest no immediate life threatening emergency they will require further evaluation and treatment by a physician of their choice in their area. They understand that it will be necessary for them to review the final reports of their ED visit with their clinic physician. We have reviewed indications for return to the Emergency Department. I have explained that additional time may need to pass and/or additional testing as an outpatient may be necessary before a definitive diagnosis can be made. They tell me they are willing to follow up as instructed within the timeframe I recommend. They appear to understand what we discussed. Additionally they understand that if they are unable to be seen by an outpatient physician they are welcome, and in fact should, return to the Emergency Department for a repeat evaluation. The patient is stable at time of discharge. Laboratory Tests Test 01/04/20 15:33 01/04/20 15:53 01/04/20 16:00 POC Whole Blood Glucose Pending Arterial Blood pH 7.373 (7.350-7.450) Arterial Blood Partial Pressure CO2 41.3 mmHg (35.0-45.0) Arterial Blood Partial Pressure O2 71.6 mmHg (75.0-100.0) L Arterial Blood HCO3 23.5 mmol/L (22.0-26.0) Arterial Blood Oxygen Saturation 92.9 % (95-100) L Arterial Blood Base Excess -1.6 (-2-2) Geovanni Test Positive White Blood Count 5.7 K/UL (4.8-10.8) Red Blood Count 3.88 M/UL (4.20-5.40) L Hemoglobin 12.1 G/DL (12.0-16.0) Hematocrit 38.4 % (37.0-47.0) Mean Corpuscular Volume 99 FL (80-99) Mean Corpuscular Hemoglobin 31.2 PG (27.0-31.0) H Mean Corpuscular Hemoglobin Concent 31.5 G/DL (32.0-36.0) L Red Cell Distribution Width 13.5 % (11.6-14.8) Platelet Count 215 K/UL (150-450) Mean Platelet Volume 7.7 FL (6.5-10.1) Neutrophils (%) (Auto) 36.8 % (45.0-75.0) L Lymphocytes (%) (Auto) 49.5 % (20.0-45.0) H Monocytes (%) (Auto) 8.0 % (1.0-10.0) Eosinophils (%) (Auto) 2.7 % (0.0-3.0) Basophils (%) (Auto) 3.0 % (0.0-2.0) H Sodium Level 139 MMOL/L (136-145) Potassium Level 3.6 MMOL/L (3.5-5.1) Chloride Level 104 MMOL/L (98-107) Carbon Dioxide Level 26 MMOL/L (21-32) Anion Gap 9 mmol/L (5-15) Blood Urea Nitrogen 20 mg/dL (7-18) H Creatinine 0.8 MG/DL (0.55-1.30) Estimated Glomerular Filtration Rate > 60 mL/min (>60) Glucose Level 120 MG/DL (74-106) H Calcium Level 8.1 MG/DL (8.5-10.1) L Phosphorus Level 5.2 MG/DL (2.5-4.9) H Magnesium Level 2.2 MG/DL (1.8-2.4) Total Bilirubin 0.3 MG/DL (0.2-1.0) Aspartate Amino Transferase (AST) 12 U/L (15-37) L Alanine Aminotransferase (ALT) 14 U/L (12-78) Alkaline Phosphatase 104 U/L (46-116) Ammonia 21 umol/L (11-32) Total Creatine Kinase 40 U/L (26-308) Total Protein 7.1 G/DL (6.4-8.2) Albumin 3.2 G/DL (3.4-5.0) L Globulin 3.9 g/dL Albumin/Globulin Ratio 0.8 (1.0-2.7) L Thyroid Stimulating Hormone (TSH) 0.518 uiU/mL (0.358-3.740) Free Thyroxine 1.10 NG/DL (0.76-1.46) Serum Alcohol < 3 mg/dL EKG Diagnostic Results EKG Time: 15:41 EP Interpretation: Gabriela John MD Rate: normal - 88 bpm Rhythm: NSR ST Segments: no acute changes Other Impression Prolonged QT Rhythm Strip Diag. Results Rhythm Strip Time: 16:21 EP Interpretation: yes - Gabriela John MD Rate: 87 bpm Rhythm: NSR, no PVC's, no ectopy Last Vital Signs Date Time Temp Pulse Resp B/P (MAP) Pulse Ox O2 Delivery O2 Flow Rate FiO2 01/04/20 15:23 97.3 112 22 108/60 (76) 98 Room Air Disposition: HOME, SELF-CARE Condition: Stable Scripts Levetiracetam (KEPPRA) 1,000 Mg Tablet 1000 MG ORAL DAILY, #30 TAB 0 Refills Prov: Gabriela John M.D. 01/04/20 Additional Instructions: The patient was provided with discharge instructions, notified to follow-up with a primary care doctor and or specialist in the next 24-48 hours, and to return to the ED if they have worsening of their symptoms. Please note that this report is being documented using DRAGON technology. This can lead to erroneous entry secondary to incorrect interpretation by the dictating instrument. Gabriela John M.D. Jan 04, 2020 15:39
[2020-01-04 16:16] LABS: EOSINOPHILS % (AUTO) 2.7 % (0.0-3.0); HEMATOCRIT 38.4 % (37.0-47.0); HEMOGLOBIN 12.1 G/DL (12.0-16.0); LYMPHOCYTES % (AUTO) 49.5 % (20.0-45.0); MEAN CORPUSCULAR VOLUME 99 FL (80-99); NEUTROPHILS % (AUTO) 36.8 % (45.0-75.0); PLATELET COUNT 215 K/UL (150-450); RED BLOOD COUNT 3.88 M/UL (4.20-5.40); RED CELL DISTRIBUTION WIDTH 13.5 % (11.6-14.8); WHITE BLOOD COUNT 5.7 K/UL (4.8-10.8)
[2020-01-04 16:26] LABS: ANION GAP 9 mmol/L (5-15); BLOOD UREA NITROGEN 20 mg/dL (7-18); CALCIUM 8.1 MG/DL (8.5-10.1); CARBON DIOXIDE 26 MMOL/L (21-32); CHLORIDE 104 MMOL/L (98-107); CREATININE 0.8 MG/DL (0.55-1.30); POTASSIUM 3.6 MMOL/L (3.5-5.1); SODIUM 139 MMOL/L (136-145)
[2020-01-04 16:29] LABS: AMMONIA 21 umol/L (11-32)
[2020-01-04 16:38] LABS: ALBUMIN 3.2 G/DL (3.4-5.0); ALBUMIN/GLOBULIN RATIO 0.8 (1.0-2.7); ALKALINE PHOSPHATASE 104 U/L (46-116); ASPARTATE AMINO TRANSFERASE 12 U/L (15-37); BILIRUBIN,TOTAL 0.3 MG/DL (0.2-1.0); CREATINE KINASE 40 U/L (26-308); PHOSPHORUS 5.2 MG/DL (2.5-4.9)
[2020-01-04 16:47] LABS: ALANINE AMINOTRANSFERASE 14 U/L (12-78)
--- NOTE | 2020-01-04 16:47 | Diagnostic Imaging Report ---
Indications: Seizure disorder, recent seizure Technique: Spiral acquisitions obtained through the brain. Angled axial and coronal 5 x 5 mm slices were reconstructed. Total dose length product 858 mGycm. CTDI vol(s) 53 mGy. Dose reduction achieved using automated exposure control Comparison: 01/03/2020 Findings: Multiple old infarcts are demonstrated, including in the bilateral high posterior parietal lobes, the anterior right frontal lobe. There is mild age-related enlargement of the ventricles and extra axial CSF spaces. Otherwise normal andrade-white differentiation. No acute intracranial hemorrhage or edema. No mass effect nor midline shift. Intact calvarium. Visualized orbits and sinuses are unremarkable. The mastoids are clear. Findings are unchanged Impression: Negative for acute intracranial bleed or mass effect Multiple old infarcts, unchanged Mild age-related volume loss The CT scanner at [facility] is accredited by the [employer] and the scans are performed using protocols designed to limit radiation exposure to as low as reasonably achievable to attain images of sufficient resolution adequate for diagnostic evaluation.
[2020-01-04] MEDS ORDERED: KEPPRA1000 MG ORAL (16:56)
[2020-01-04 17:10] VITALS: BP 123/76
== END 2020-01-04 17:10 | disposition home or self-care (01) ==
LOC: EMR 15:48
DX: G40.909 Epilepsy, unspecified, not intractable, without status epilepticus (principal); J44.9 Chronic obstructive pulmonary disease, unspecified; E11.9 Type 2 diabetes mellitus without complications; I10 Essential (primary) hypertension; Z88.6 Allergy status to analgesic agent; Z88.0 Allergy status to penicillin; Z86.73 Personal history of transient ischemic attack (TIA), and cerebral infarction without residual deficits
CPT/HCPCS: 36415; 36600; 70450; 80053; 82140; 82550; 82803; 82962; 83735; 84100; 84439; 84443; 85025; 93005; 96361; 96374; 96375; G0480; J1953; J7030; Z7502; 99284